=== PATIENT | male | born 1950 | race Caucasian/White ===

== ENCOUNTER 2020-06-01 08:14 | Outpatient (REF) | payer MEDICARE, BC, SELFPAY ==
[2020-06-01 11:48] LABS: Alanine Aminotransferase 25 U/L (0-40); Anion Gap 13 (12-20); Aspartate Amino Transferase 20 U/L (5-37); Blood Urea Nitrogen 20 mg/dL (9-16); Calcium 8.8 mg/dL (8.4-10.2); Carbon Dioxide 29 mmol/L (22-29); Chloride 102 mmol/L (96-108); Cholesterol 198 mg/dL; Estimated Glomerular Filt Rate > 60; Glucose Fasting 125 mg/dL (60-99); HDL Cholesterol 44 mg/dL; LDL Cholesterol Calculated 135 mg/dl; Potassium 4.6 mmol/l (3.3-5.1); Sodium 139 mmol/L (135-145); Triglycerides 95 mg/dL
[2020-06-01 12:03] LABS: PSA,Total (Free>4and<10) 0.56 ng/mL (0.00-4.00)
== END 2020-06-01 08:15 | disposition home or self-care (01) ==
LOC: HO.HMGCLDS 08:14
PROVIDERS: PCP Internal Medicine; Visit Provider Internal Medicine
DX: Z00.00 Encounter for general adult medical examination without abnormal findings (principal); I10 Essential (primary) hypertension; E78.5 Hyperlipidemia, unspecified; Z13.6 Encounter for screening for cardiovascular disorders
CPT/HCPCS: 80048; 80061; 84153; 84450; 84460

== ENCOUNTER 2020-12-10 12:02 | Outpatient (REF) | payer MEDICARE, BC, SELFPAY ==
[2020-12-10 14:03] LABS: MANUAL DIFF FLAG NO
[2020-12-10 14:08] LABS: Basophils Absolute Auto 0.1 X10*3/uL (0.0-0.2); Basophils Percent Auto 0.9 % (0-2); Eosinophils Absolute Auto 0.2 X10*3/uL (0.0-0.4); Eosinophils Percent Auto 2.3 % (0-4); Hematocrit 45.4 % (42-52); Hemoglobin 14.3 g/dl (14.0-18.0); Imm Gran Abs Auto 0.02 X10*3/uL (0.00-0.03); Imm Gran Pct Auto 0.3 % (0.0-0.4); Lymphocytes Absolute Auto 2.2 X10*3/uL (1.2-4.9); Lymphocytes Percent Auto 31.6 % (20-40); Mean Corpuscular HGB Conc 31.5 g/dl (31.0-36.0); Mean Corpuscular Hemoglobin 27.8 pg (27.0-33.0); Mean Corpuscular Volume 88.3 fL (80-98); Mean Platelet Volume 11.6 fL (9.4-12.4); Monocytes Absolute Auto 0.8 X10*3/uL (0.1-1.2); Monocytes Percent Auto 11.7 % (2-11); Neutrophils Absolute Auto 3.7 X10*3/uL (2.0-8.3); Neutrophils Percent Auto 53.2 % (45-73); Platelet Count 266 X10*3/uL (160-400); Red Blood Count 5.14 X10*6/uL (4.60-5.80); Red Cell Distribution Width 12.8 % (11.0-16.0); White Blood Count 6.9 X10*3/uL (4.8-10.8)
[2020-12-10 14:43] LABS: Alanine Aminotransferase 22 U/L (0-40); Aspartate Amino Transferase 18 U/L (5-37); Blood Urea Nitrogen 23 mg/dL (9-16); Calcium 9.6 mg/dL (8.4-10.2); Cholesterol 210 mg/dL; Estimated Glomerular Filt Rate > 60; Glucose Fasting 110 mg/dL (60-99); HDL Cholesterol 47 mg/dL; LDL Cholesterol Calculated 140 mg/dl; Triglycerides 115 mg/dL
[2020-12-10 14:55] LABS: PSA,Total (Free>4and<10) 0.48 ng/mL (0.00-4.00); Vitamin D 25-OH Total 41.1 ng/mL (>30)
[2020-12-10 15:01] LABS: Anion Gap 14 (12-20); Carbon Dioxide 26 mmol/L (22-29); Chloride 105 mmol/L (96-108); Potassium 4.8 mmol/L (3.3-5.1); Sodium 140 mmol/L (135-145)
== END 2020-12-10 12:03 | disposition home or self-care (01) ==
LOC: HO.HMGCLDS 12:02
PROVIDERS: PCP Internal Medicine; Visit Provider Internal Medicine
DX: Z12.5 Encounter for screening for malignant neoplasm of prostate (principal); I10 Essential (primary) hypertension; E78.5 Hyperlipidemia, unspecified; E66.9 Obesity, unspecified
CPT/HCPCS: 36415; 80048; 80061; 82306; 84153; 84450; 84460; 85025

== ENCOUNTER → 2022-09-04 15:09 | Outpatient (BNVA) | payer MEDICARE, BC, SELFPAY | PROVIDERS: PCP Internal Medicine; Visit Provider Psychiatry & Neurology Psychiatry | DX: F41.1 Generalized anxiety disorder (principal); F34.1 Dysthymic disorder | CPT/HCPCS: 90833; 99212 ==

== ENCOUNTER 2022-09-25 09:35 | Outpatient (REF) | payer MEDICARE, BC, SELFPAY ==
[2022-09-25 12:20] LABS: Anion Gap 15 (12-20); Blood Urea Nitrogen 21 mg/dL (9-16); Calcium 9.4 mg/dL (8.4-10.2); Carbon Dioxide 29 mmol/L (22-29); Chloride 101 mmol/L (96-108); Cholesterol 211 mg/dL; Estimated Glomerular Filt Rate 55; Glucose Fasting 129 mg/dL (60-99); HDL Cholesterol 45 mg/dL; LDL Cholesterol Calculated 131 mg/dl; PSA,Total (Free>4and<10) 0.53 ng/mL (0.00-4.00); Potassium 4.6 mmol/L (3.3-5.1); Sodium 140 mmol/L (135-145); Triglycerides 176 mg/dL; Vitamin D 25-OH Total 44.9 ng/mL (>30)
== END 2022-09-25 09:36 | disposition home or self-care (01) ==
LOC: HO.HMGCLDS 09:35
PROVIDERS: PCP Internal Medicine; Visit Provider Internal Medicine
DX: I10 Essential (primary) hypertension (principal); E78.5 Hyperlipidemia, unspecified; E66.9 Obesity, unspecified; Z12.5 Encounter for screening for malignant neoplasm of prostate
CPT/HCPCS: 36415; 80048; 80061; 82306; 84153

== ENCOUNTER 2022-10-04 12:52 | Outpatient (AMB) | payer MEDICARE, BC, SELFPAY ==
--- NOTE | 2022-10-04 12:54 | A.OFFPC_ITS ---
Vital Signs 10/04/22 13:02 Height 5 ft 10 in Weight 274 lb BMI 39.3 BP 168/76 H Blood Pressure Location Rt brachial Position Sitting Pulse 67 Pulse Source Pulse Oximeter Pulse Oximetry (%) 98 Oxygen Delivery Method Room Air Comment has not taken his losartan-HCTZ yet this am Intake Visit Reasons: followup new findings from compensation/benefits specialist Intake Note: Pt is here today to f/u on new findings from compensation/benefits specialist Allergies lisinopril Allergy (Unknown, Verified 02/26/24 10:46) cough morphine Allergy (Unknown, Verified 02/26/24 10:46) hives Medication List - Last Reconciled 10/04/22 by Michelle Mejía MD aspirin (Adult Low Dose Aspirin) 81 mg PO DAILY cholecalciferol (vitamin D3) 25 mcg PO DAILY flaxseed oil 1,000 mg PO DAILY lorazepam 0.5 mg PO DAILY PRN losartan-hydrochlorothiazide 50-12.5 mg 1 tab PO DAILY sertraline 50 mg PO DAILY Tobacco use date assessed: 10/04/22 Fall risk assessment: No Falls in past year Last assessed Fall Risk: 10/04/22 HPI followup new findings from compensation/benefits specialist HPI Details 74-year-old male here today for follow-u p after 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 He states that he was lifting heavy furniture the day prior to visit but as per exam distribution hemorrhage was not consistent with Valsalva retinopathy. Advised to get his blood pressure checked and get it controlled, and get lipids, she blood sugar levels controlled and to check for any evidence of atherosclerosis. Patient denies any chest pain, no headaches, no shortness of breath or palpitation. Systolic Blood pressure today's visit is elevated. Recent fasting labs showed hemoglobin A1c at 6.2% and LDL cholesterol at 131 mg/dL with an triglycerides at 176 mg/dL and total cholesterol at 211 mg/dL with HDL at 45. [facility] Medical History White coat syndrome with hypertension Mixed dyslipidemia Impaired fasting glucose History of retinal tear Hollenhorst plaque, both eyes Generalized anxiety disorder Panic disorder History of eczema Osteoarthritis of right knee Anxiety Obesity Essential hypertension Surgical History History of bariatric surgery History of total right knee replacement Family History Mother Congestive heart failure Social History Housing: House Alcohol intake: current Patient Tobacco Use Status: Never used Tobacco e-Cigarette/Vaping Use: Never Used Current occupational status: retired Cognitive needs: No Hearing needs: No Vision needs: No Questionnaire PHQ-9 Over the last 2 weeks, how often have you been bothered by any of the following problems? 1. Little interest or pleasure in doing things: several days 2. Feeling down, depressed, or hopeless: not at all 3. Trouble falling or staying asleep, or sleeping too much: several days 4. Feeling tired or having little energy: not at all 5. Poor appetite or overeating: not at all 6. Feeling bad about yourself - or that you are a failure or have let yourself or your family down: not at all 7. Trouble concentrating on things, such as reading the newspaper or watching television: not at all 8. Moving or speaking so slowly that other people could have noticed. Or the opposite - being so fidgety or restless that you have been moving around a lot more than usual: not at all 9. Thoughts that you would be better off or of hurting yourself in some way: not at all Total score: 2 Depression Screening Interpretation: Negative Source: Developed by Drs. Vernon Harry, Yandy Pate, Ming Borjas and colleagues, with an educational angie from [email or web address]. Thrive Questionnaire Declines Thrive assessment: No Date Thrive assessed: 10/04/22 I am a: Patient What is your living situation today?: I have a steady place to live Within the past 12 months, did the food you bought not last and you didn't have the money to get more?: Never true Within the past 12 months, did you worry whether your food would run out before you got money to buy more?: Never true Do you have trouble paying for medicines?: No Do you have trouble getting transportation to medical appointments?: No Do you have trouble paying your heating and electricity bill?: No Do you have trouble taking care of your child, family member or friend?: No Do you have trouble with day-to-day activities such as bathing, preparing meals, shopping, managing finances, etc.?: No Are you currently unemployed and looking for a job?: No Are you interested in more education?: Yes AUDIT C Alcohol Use Questionnaire (AUDIT-C) 1. How often do you have a drink containing alcohol?: Monthly or less 2. How many drinks containing alcohol do you have on a typical day when you are drinking?: 1 or 2 3. How often do you have six or more drinks on one occasion?: Never Total Score: 1 MCKAYLA-7 AMB Questionnaire MCKAYLA-7 Date MCKAYLA - 7 assessed: 10/04/22 Feeling nervous, anxious, or on edge: 1 = Several days Not being able to stop or control worryin = Several days Worrying too much about different things: 1 = Several days Trouble relaxin = Several days Being so restless that it is hard to sit still: 0 = Not at all Becoming easily annoyed or irritable: 0 = Not at all Feeling afraid as if something awful might happen: 0 = Not at all Total MCKAYLA-7 score (0-4 normal; 5-9 mild; 10-14 moderate; 15-21 severe): 4 Source: Developed by Drs. Vernon Harry, Yandy Pate, Ming Borjas and colleagues, with an educational angie from [email or web address]. MCKAYLA-7 Assessment Billing MCKAYLA-7 Assessment Tool: MCKAYLA-7 Assessment 14670 Review of Systems Const Denies body aches, Denies fatigue, Denies fever(s), Denies headache(s), Denies malaise, Denies poor appetite and Denies weakness Eyes Reports no additional complaints ENT Denies dizziness, Denies dry mouth, Denies otalgia, Denies headache(s), Denies epistaxis and Denies nasal congestion Card Denies chest pain, Denies irregular heart rhythm, Denies lightheadedness and Denies dyspnea Resp Denies cough and Denies dyspnea GI Denies abdominal pain, Denies melena, Denies hematochezia, Denies change in bowel habits, Denies heartburn and Denies nausea Denies hematuria, Denies oliguria, Denies difficulty urinating and Denies dysuria Musc Denies back pain, Denies myalgias, Denies arthralgias, Denies joint swelling, Denies muscle cramps, Denies muscle weakness and Denies tingling Skin/Breast Denies lesions and Denies rash Neuro Denies dizziness, Denies headache(s), Denies convulsions, Denies Sensory deficit (Neuro), Denies tingling, Denies paresthesias and Denies weakness Psych Reports no additional complaints Endo Denies fatigue and Denies polyphagia Ricardo/Lymph Reports no additional complaints Aller/Immun Reports no additional complaints Physical exam (Primary Care) Vital Signs: Last Vital Signs Pulse 67 10/04/22 13:02 BP 168/76 H 10/04/22 13:02 Pulse Ox 98 10/04/22 13:02 Oxygen Delivery Method Room Air 10/04/22 13:02 BMI result Body Mass Index 39.3 Tobacco/Smoking Status: Tobacco use Status Tobacco use date assessed 10/04/22 10/04/22 13:07 Patient Tobacco Use Status Never used Tobacco 10/04/22 13:07 e-Cigarette/Vaping Use Never Used 10/04/22 13:07 PHQ-9: PHQ-9 Score PHQ-9: Total score 2 10/04/22 13:48 Depression Screening Interpretation: Negative Thrive Assessment: Date of Thrive Assessment Date Thrive assessed 10/04/22 10/04/22 13:09 Const Other: Alert oriented x3, obese, no acute distress noted, ambulatory normal gait Orientation/consciousness: patient oriented x3 HENMT Head: Yes normocephalic Ears: external ears normal, TM's normal bilaterally and EAC's normal General nose exam: Normal external nose present and No nasal discharge present Face and sinus: Yes face symmetric Mouth: Normal oral and palatal mucosa present, tongue normal, oropharynx normal and moist mucous membranes Eyes General: appearance normal, both eyes and all related structures Neck Neck: Yes full ROM, Yes no lymphadenopathy and Yes supple Thyroid: Thyroid normal Carotids: no bruits Resp Auscultation: clear to auscultation bilaterally Cardio Other: S1-S2 present regular rate and rhythm GI Inspection: Yes normal to inspection and Yes obesity Palpation (GI): Soft to palpation, nontender, no guarding and no masses Auscultation: normal bowel sounds General: Yes no CVA tenderness Male General Exam: Yes normal external exam Back/Spine/Pelvis Back: no CVA tenderness Skin General skin exam: no rashes or lesions noted Neuro General: patient oriented x3, gait normal, tone normal, moves all extremities, Normal light touch and pain sensation, no focal motor deficits and CN's II-XI intact bilaterally Sensory Exam: No Sensory deficit (Neuro) Extrem General: Yes full ROM, Yes no joint enlargement, Yes no clubbing, cyanosis or edema and Yes normal gait Psych Appearance: grossly normal and well kempt Mental Status: mental status grossly normal Speech and movement: Normal speech and movement present Affect: normal affect Attitude: cooperative Thought process: Normal thought process present Thought content: Normal thought content present Results AMB Hemoglobin A1c AMB Hemoglobin A1c 6.2 % Last Edit by Deidre Rivas CMA on 10/04/22 13:30 Results Reviewed Results Reviewed: Laboratory Last Values Hgb A1c (Clinic) 6.2 % (4.0-6.0) H 10/04/22 13:26 ENTERED: 09/25/22-[address]: ORDERED: Met Prof Fast, Lipid Panel, PSA W/ REFLEX, Vitamin D 25-OH Test Result Flag Reference Site Sodium 140 135-145 mmol/L Potassium 4.6 3.3-5.1 mmol/L CL 101 96-108 mmol/L CO2 29 22-29 mmol/L Gap 15 12-20 BUN 21 H 9-16 mg/dL Creat 1.28 0.5-1.4 mg/dL EGFR 55 NOTE: For -Citizen Of [place] individuals, multiply the result by 1.210. Chronic Kidney Disease: Estimated GFR < 60 mL/min/1.73m2 Severe Kidney Disease: Estimated GFR < 15 m L/min/1.73m2 FBS 129 H 60-99 mg/dL A fasting glucose of 126 mg/dl or greater on more than one occasion is considered diagnostic of diabetes. CA 9.4 8.4-10.2 mg/dL Triglyceride 176 mg/dL Desirable Triglyceride: less than 150 mg/dL Borderline High Triglyceride 150-199 mg/dL High Triglyceride: 200-499 mg/dL Very High Triglyceride: greater than or equal to 5OO mg/dL Chol 211 mg/dL Desirable Cholesterol: less than 200 mg/dL Borderline High Cholesterol: 200-239 mg/dL High Cholesterol: greater than 239 mg/dL LDL Calculated 131 mg/dl Desirable LDL: less than 100 mg/dL Near Optimal/Above Optimal LDL: 110-129 mg/dL Borderline High LDL: 130-159 mg/dL High LDL: 160-189 mg/dL Very High LDL: greater than or equal to 190 mg/dL HDL 45 mg/dL Desirable HDL: greater than 40 mg/dL Note: This HDL assay may give artificially low results in patients with liver disease. PSA W/ REFLEX 0.53 0.00-4.00 ng/mL A Free PSA was not performed: The percentage of Free PSA can be used to enhance the differentiation of prostate cancer from benign prostatic disease in subjects whose PSA levels are between 4.0 and 10.0 ng/mL. For subjects whose PSA levels are below 4.0 or above 10.0 ng/mL, the risk of prostate cancer is determined on the basis of the PSA alone. Therefore the % Free PSA is recommended only for those subjects whose PSA levels are between 4.0 and 10.0 ng/mL. PSA methodology: [employer] Interviewer Chemiluminescent Microparticle Immunoassay Vit D 25-OH Tot 44.9 >30 ng/mL Health Based Reference Values* < 20 ng/mL Deficient 20-30 ng/mL Insufficient > 30 ng/mL Sufficient Assessment and Plan Assessment & Plan (1) History of retinal tear: Code(s): Z86.69 - Personal history of other diseases of the nervous system and sense organs Plan: l. Strict control of blood pressure, blood glucose level and cholesterol levels again emphasized. Ordered a carotid ultrasound bilateral (2) Hollenhorst plaque, both eyes: Code(s): H34.213 - Partial retinal artery occlusion, bilateral Plan: Strict control of blood pressure, blood glucose level and cholesterol levels again emphasized. Ordered a carotid ultrasound bilateral (3) Mixed dyslipidemia: Code(s): E78.2 - Mixed hyperlipidemia Plan: Reviewed recent fasting lipid profile with patient with elevated triglycerides and LDL cholesterol. . Continue flaxseed oil, and strict adherence to a low- cholesterol diet and regular exercise, at least 30 minutes 3 to 4 times a week. Advised patient to make healthy food choices, eat more fruits, vegetables, whole grains, wild caught fish and low-fat dairy. Limit amount of meat and fried or fatty food products, as well as processed foods and fast foods. . (4) Impaired fasting glucose: Code(s): R73.01 - Impaired fasting glucose Plan: Hemoglobin A1c today is at 6.2%, Your previous fasting blood sugars were elevated above 100 mg/dL. Impaired glucose metabolism increases the risk for developing diabetes mellitus type 2, as well as heart attack and stroke later on. Lifestyle changes that promotes weight loss, healthy eating habits, and regular exercise are important, and can prevent the progression to diabetes Orders: Orders AMB Hemoglobin A1c 10/04/22 R73.01 - Impaired fasting glucose AMB EKG-In Office 10/04/22 H34.213 - Partial retinal artery occlusion, bilateral AMB Hemoglobin A1c 10/04/22 Z13.9 - Encounter for screening, unspecified US carotid duplex BI 10/04/22 H34.213 - Partial retinal artery occlusion, bilateral, Z86.69 - Personal history of other diseases of the nervous system and sense organs, R73.01 - Impaired fasting glucose, E78.2 - Mixed hyperlipidemia Coding Level of Care Code Est Pt Level 4 (81890) Complex EM visit Add On G2211 Diagnoses History of retinal tear Z86.69 Hollenhorst plaque, both eyes H34.213 Mixed dyslipidemia E78.2 Impaired fasting glucose R73.01 Additional Codes MCKAYLA-7 Assessment Billing - MCKAYLA-7 Assessment Tool: MCKAYLA-7 Assessment 51772 ([id number])
[2022-10-04 13:02] VITALS: BP 168/76; PULSE 67; O2SAT 98; BMI 39.3
== END 2022-10-04 14:36 | disposition home or self-care (01) ==
LOC: HO.HMGC 12:52
PROVIDERS: PCP Internal Medicine; Visit Provider Internal Medicine
DX: Z86.69 Personal history of other diseases of the nervous system and sense organs (principal); H34.213 Partial retinal artery occlusion, bilateral; E78.2 Mixed hyperlipidemia; R73.01 Impaired fasting glucose
CPT/HCPCS: 99499

== ENCOUNTER 2022-10-25 09:42 | Outpatient (REF) | payer MEDICARE, BC, SELFPAY ==
--- NOTE | ~2022-10-25 | US_ITS ---
EXAMINATION: US EXTRACRANIAL CAROTID DUPLEX, BILATERAL CLINICAL INFORMATION: Retinal artery occlusion. COMPARISON: None. TECHNIQUE: Real-time ultrasound and Doppler techniques (integrating B-mode 2-D vascular images, Doppler spectral analysis and color-flow Doppler imaging) were utilized to interrogate the extracranial carotid arteries, the vertebral arteries and proximal subclavian arteries bilaterally. The degree of stenosis is determined by criteria similar to NASCET. FINDINGS: RIGHT SIDE: 1. There is mild atherosclerotic plaque seen in the bifurcation/proximal ICA region. 2. The common carotid artery PSV proximally is 120 cm/s and distally 72 cm/s. 3. The proximal internal carotid artery velocities are 73 cm/s systolic and 15 cm/s diastolic. 4. The proximal external carotid artery PSV is 183 cm/s. 5. The vertebral artery shows antegrade flow. 6. The subclavian artery waveforms are normal. LEFT SIDE: 1. There is mild atherosclerotic plaque seen in the bifurcation/proximal ICA region. 2. The common carotid artery PSV proximally is 104 cm/s and distally 84 cm/s. 3. The proximal internal carotid artery velocities are 67 cm/s systolic and 12 cm/s diastolic. 4. The proximal external carotid artery PSV is 99 cm/s. 5. The vertebral artery shows antegrade flow. 6. The subclavian artery waveforms are normal. US/US carotid duplex BI IMPRESSION: 1. RIGHT: Minimal, non-hemodynamically significant stenosis of the proximal right internal carotid artery corresponding to a 0-49% stenosis by velocity criteria. 2. LEFT: Minimal, non-hemodynamically significant stenosis of the proximal left internal carotid artery corresponding to a 0-49% stenosis by velocity criteria.
== END 2022-10-25 09:43 | disposition home or self-care (01) ==
LOC: HO.HMGCX 09:42
PROVIDERS: PCP Internal Medicine; Visit Provider Internal Medicine
DX: H34.213 Partial retinal artery occlusion, bilateral (principal); E78.2 Mixed hyperlipidemia; R73.01 Impaired fasting glucose; Z86.69 Personal history of other diseases of the nervous system and sense organs
CPT/HCPCS: 93880

== ENCOUNTER → 2022-12-26 12:53 | Outpatient (BNVA) | payer MEDICARE, BC, SELFPAY | PROVIDERS: PCP Internal Medicine; Visit Provider Psychiatry & Neurology Psychiatry | DX: F32.A Depression, unspecified (principal); F41.0 Panic disorder [episodic paroxysmal anxiety]; Z79.899 Other long term (current) drug therapy | CPT/HCPCS: 90833; 99212 ==

== ENCOUNTER 2023-03-23 11:05 | Outpatient (REF) | payer MEDICARE, BC, SELFPAY ==
[2023-03-23 14:03] LABS: Estimated Average Glucose 131 mg/dL; Hemoglobin A1c % 6.2 %
[2023-03-23 15:09] LABS: Alanine Aminotransferase 24 U/L (0-40); Anion Gap 16 (12-20); Aspartate Amino Transferase 19 U/L (5-37); Blood Urea Nitrogen 23 mg/dL (9-16); Calcium 9.7 mg/dL (8.4-10.2); Carbon Dioxide 26 mmol/L (22-29); Chloride 103 mmol/L (96-108); Cholesterol 181 mg/dL; Estimated Glomerular Filt Rate > 60; Glucose Fasting 136 mg/dL (60-99); HDL Cholesterol 40 mg/dL; LDL Cholesterol Calculated 115 mg/dl; Potassium 4.8 mmol/L (3.3-5.1); Sodium 140 mmol/L (135-145); Triglycerides 131 mg/dL
[2023-03-23 15:11] LABS: Vitamin D 25-OH Total 74.9 ng/mL (>30)
== END 2023-03-23 11:06 | disposition home or self-care (01) ==
LOC: HO.HMGCLDS 11:05
PROVIDERS: PCP Internal Medicine; Visit Provider Internal Medicine
DX: E66.9 Obesity, unspecified (principal); E78.2 Mixed hyperlipidemia; I10 Essential (primary) hypertension; R73.01 Impaired fasting glucose; Z86.39 Personal history of other endocrine, nutritional and metabolic disease
CPT/HCPCS: 36415; 80048; 80061; 82306; 83036; 84450; 84460

== ENCOUNTER 2023-03-29 09:12 | Outpatient (AMB) | payer MEDICARE, BC, SELFPAY ==
--- NOTE | 2023-03-29 09:19 | A.OFFPC_ITS ---
Vital Signs 03/29/23 09:29 Height 5 ft 10 in Weight 274 lb BMI 39.3 BP 158/80 H Blood Pressure Location Lt brachial Position Sitting Pulse 64 Pulse Source Pulse Oximeter Pulse Oximetry (%) 94 Oxygen Delivery Method Room Air Intake Visit Reasons: Annual PE Intake Note: Pt is here today for his PE Allergies lisinopril Allergy (Unknown, Verified 03/29/23 10:02) cough morphine Allergy (Unknown, Verified 03/29/23 10:02) hives Medication List - Last Reconciled 03/29/23 by Michelle Mejía MD aspirin (Adult Low Dose Aspirin) 81 mg PO DAILY cholecalciferol (vitamin D3) 25 mcg PO DAILY flaxseed oil 1,000 mg PO DAILY lorazepam 0.5 mg PO DAILY PRN losartan-hydrochlorothiazide 50-12.5 mg 1 tab PO DAILY sertraline 50 mg PO DAILY Tobacco use date assessed: 03/29/23 Fall risk assessment: No Falls in past year Last assessed Fall Risk: 03/29/23 Dental Screening Dental Screen Date: 03/29/23 Did you have a dental visit in the last 12 months?: Yes Did you have a dental problem in the last 6 months where you did not have access to dental care?: Yes Was dental information given to patient?: Patient has dentist HPI Annual PE HPI Details 73-year-old male with history of white coat syndrome with hypertension, mixed dyslipidemia, history impaired fasting glucose, generalized anxiety disorder, osteoarthritis of right knee and obesity, here today for his physical exam. Has been checking his blood pressure at home and his levels do not go above 130/80 when checked denies any chest pain, no headache, no lightheadedness or nausea. Compliant with taking his medications, currently on losartan- hydrochlorothiazide for blood pressure and takes sertraline 50 mg daily for his generalized anxiety disorder, rarely needing to be take his lorazepam. He had recent fasting labs done which showed normal electrolytes, renal function, A1c at 6.2%, and lipids within normal limits as well as vitamin-D level. [facility] Medical History (Updated 03/29/23 @ 10:23 by Michelle Mejía MD) Anxiety Essential hypertension Generalized anxiety disorder History of eczema History of retinal tear Hollenhorst plaque, both eyes Impaired fasting glucose Mixed dyslipidemia Obesity Osteoarthritis of right knee Panic disorder White coat syndrome with hypertension Surgical History History of bariatric surgery History of total right knee replacement Family History Mother Congestive heart failure Social History Housing: House Alcohol intake: current Patient Tobacco Use Status: Never used Tobacco e-Cigarette/Vaping Use: Never Used Current occupational status: retired Cognitive needs: No Hearing needs: No Vision needs: No Questionnaire Thrive Questionnaire Date Thrive assessed: 10/04/22 MCKAYLA-7 AMB Questionnaire MCKAYLA-7 Date MCKAYLA - 7 assessed: 10/04/22 Source: Developed by Drs. Vernon Harry, Yandy Pate, Ming Borjas and colleagues, with an educational angie from [employer]. Review of Systems Const Denies body aches, Denies fatigue, Denies fever(s), Denies headache(s), Denies malaise, Denies poor appetite and Denies weakness Eyes Reports no additional complaints ENT Denies dizziness, Denies dry mouth, Denies otalgia, Denies headache(s), Denies epistaxis and Denies nasal congestion Card Denies chest pain, Denies irregular heart rhythm, Denies lightheadedness and Denies dyspnea Resp Denies cough and Denies dyspnea GI Denies abdominal pain, Denies melena, Denies hematochezia, Denies change in bowel habits, Denies heartburn and Denies nausea Denies hematuria, Denies oliguria, Denies difficulty urinating and Denies dysuria Musc Denies back pain, Denies myalgias, Denies arthralgias, Denies joint swelling, Denies muscle cramps, Denies muscle weakness and Denies tingling Skin/Breast Denies lesions and Denies rash Neuro Denies dizziness, Denies headache(s), Denies convulsions, Denies Sensory deficit (Neuro), Denies tingling, Denies paresthesias and Denies weakness Psych Reports no additional complaints Endo Denies fatigue and Denies polyphagia Ricardo/Lymph Reports no additional complaints Aller/Immun Reports no additional complaints Physical exam (Primary Care) Vital Signs: Last Vital Signs Pulse 64 03/29/23 09:29 BP 158/80 H 03/29/23 09:29 Pulse Ox 94 03/29/23 09:29 Oxygen Delivery Method Room Air 03/29/23 09:29 BMI result Body Mass Index 39.3 BMI Assessment/Plan discussion: High BMI High, discussed plan: lifestyle, weight reduction, dietary and physical activity Tobacco/Smoking Status: Tobacco use Status Tobacco use date assessed 03/29/23 03/29/23 09:20 Patient Tobacco Use Status Never used Tobacco 03/29/23 09:20 e-Cigarette/Vaping Use Never Used 03/29/23 09:20 Thrive Assessment: Date of Thrive Assessment Date Thrive assessed 10/04/22 03/29/23 09:20 Advance Care Planning discussion: On file, no changes Date of discussion: 03/29/23 Who was present: Patient Forms completed: Health Care Proxy (Already on file) Time spent: 1-15 minutes, on File Const Other: Alert oriented x3, obese, no acute distress noted, ambulatory normal gait Orientation/consciousness: patient oriented x3 HENMT Head: Yes normocephalic Ears: external ears normal, TM's normal bilaterally and EAC's normal General nose exam: Normal external nose present and No nasal discharge present Face and sinus: Yes face symmetric Mouth: Normal oral and palatal mucosa present, tongue normal, oropharynx normal and moist mucous membranes Eyes General: appearance normal, both eyes and all related structures Neck Neck: Yes full ROM, Yes no lymphadenopathy and Yes supple Thyroid: Thyroid normal Carotids: no bruits Lymphatic: no lymphadenopathy noted Chest Chest palpation & inspection: normal inspection of the chest Resp Auscultation: clear to auscultation bilaterally Cardio Other: S1-S2 present regular rate and rhythm GI Inspection: Yes normal to inspection and Yes obesity Palpation (GI): Soft to palpation, nontender, no guarding and no masses Auscultation: normal bowel sounds General: Yes no CVA tenderness Male General Exam: Yes normal external exam Back/Spine/Pelvis Back: no CVA tenderness Skin General skin exam: no rashes or lesions noted Neuro General: patient oriented x3, gait normal, tone normal, moves all extremities, Normal light touch and pain sensation, no focal motor deficits and CN's II-XI intact bilaterally Sensory Exam: No Sensory deficit (Neuro) Extrem General: Yes full ROM, Yes no joint enlargement, Yes no clubbing, cyanosis or edema and Yes normal gait Psych Appearance: grossly normal and well kempt Mental Status: mental status grossly normal Speech and movement: Normal speech and movement present Affect: normal affect Attitude: cooperative Thought process: Normal thought process present Thought content: Normal thought content present Results Reviewed Results Reviewed: RUN: 03/29/23 0956 PAGE 1 [facility] [address] [place] [id number] [employer]ane: Lloyd Aburto M.D. Specimen Inquiry Name: Arley Mendoza Age/Sex: 73/M : 1950 Unit#: [id number] Attend Dr: Michelle Mejía MD Re03/23/23 Status: DEP [facility]F [facility] Disch: SPEC : [id number] VIPIN: 03/23/23 STATUS: COMP REQ : [id number] RECD: 03/23/[address]: Michelle Mejía MD COMP: 03/23/23 ENTERED: 03/23/23-[address]: ORDERED: Met Prof Fast, AST, ALT, Lipid Panel, Vitamin D 25-OH Test Result Flag Reference Site Sodium 140 135-145 mmol/L Potassium 4.8 3.3-5.1 mmol/L CL 103 96-108 mmol/L CO2 26 22-29 mmol/L Gap 16 12-20 BUN 23 H 9-16 mg/dL Creat 1.12 0.5-1.4 mg/dL EGFR > 60 NOTE: For -[place] individuals, multiply the result by 1.210. Chronic Kidney Disease: Estimated GFR < 60 mL/min/1.73m2 Severe Kidney Disease: Estimated GFR < 15 mL/min/1.73m2 FBS 136 H 60-99 mg/dL A fasting glucose of 126 mg/dl or greater on more than one occasion is considered diagnostic of diabetes. CA 9.7 8.4-10.2 mg/dL AST (GOT) 19 5-37 U/L ALT (GPT) 24 0-40 U/L Triglyceride 131 mg/dL Desirable Triglyceride: less than 150 mg/dL Borderline High Triglyceride 150-199 mg/dL High Triglyceride: 200-499 mg/dL Very High Triglyceride: greater than or equal to 5OO mg/dL Chol 181 mg/dL Desirable Cholesterol: less than 200 mg/dL Borderline High Cholesterol: 200-239 mg/dL High Cholesterol: greater than 239 mg/dL LDL Calculated 115 mg/dl Desirable LDL: less than 100 mg/dL Near Optimal/Above Optimal LDL: 110-129 mg/dL Borderline High LDL: 130-159 mg/dL High LDL: 160-189 mg/dL Very High LDL: greater than or equal to 190 mg/dL HDL 40 mg/dL Desirable HDL: greater than 40 mg/dL Note: This HDL assay may give artificially low results in patients with liver disease. Vit D 25-OH Tot 74.9 >30 ng/mL Health Based Reference Values* < 20 ng/mL Deficient 20-30 ng/mL Insufficient > 30 ng/mL Sufficient Laboratory Tests 03/23/23 11:12 Estimat Average Glucose 131 Hemoglobin A1c % 6.2 Assessment and Plan Assessment & Plan (1) Annual visit for general adult medical examination with abnormal findings: Code(s): Z00.01 - Encounter for general adult medical examination with abnormal findings Plan: Reviewed recent fasting labs with patient. Recommended dental visit every 6 months and regular eye exams, at least every 2 years. Take adequate calcium in diet and vitamin-D 3 at 2000 IU per cap once a day, in addition to weight- bearing exercises to help maintain good muscle tone and weight control. Instructed to do self-testicular exam to check for mass. Reminded to get his COVID booster, as well as yearly flu vaccine, due for his Prevnar 20, level right now the clinic, he can get is at the pharmacy. He is also eligible to get shingles vaccine, and is available at pharmacies well. Up-to-date with his screening colonoscopy done by Dr. Ricketts in 2016, repeat due in 2026 (2) Mixed dyslipidemia: Code(s): E78.2 - Mixed hyperlipidemia Plan: Reviewed recent fasting lipid profile with patient with levels within normal limits . Continue with taking flaxseed oil, , in addition to adherence to low-cholesterol diet and regular exercise, at least 30 minutes 3 to 4 times a week. Advised patient to make healthy food choices, eat more fruits, vegetables, whole grains, wild caught fish and low-fat dairy. Limit amount of meat and fried or fatty food products, as well as processed foods and fast foods. Follow-up scheduled with repeat fasting lipid panel in 6 months. (3) Impaired fasting glucose: Code(s): R73.01 - Impaired fasting glucose Plan: Your fasting blood sugars elevated above 100 mg/dL. With a hemoglobin A1c at 6.2%. Impaired glucose metabolism O2 at risk for developing diabetes mellitus type 2, as well as heart attack and stroke later on. Lifestyle changes at just weight loss, healthy eating habits, and regular exercise are important, and can prevent the progression to diabetes (4) Generalized anxiety disorder: Code(s): F41.1 - Generalized anxiety disorder Plan: Continued on sertraline 50 mg once a day, and has lorazepam to take as needed for acute anxiety attacks (5) Obesity: Code(s): E66.9 - Obesity, unspecified Plan: Your BMI is above the ideal range. I deal BMI is between 18.5- 24. BMI is calculated from you height and weight. Weight gain happens when you taken more calories than you burn off. Discussed need to increase activity and weight reduction. Recommended focusing on improving health instead of dieting. Mediterranean diet is a healthy diet that helps, limit food high in fat, sugar, and calories. Eat slowly, pay attention to portion sizes, plan your meals ahead of time, start regular physical activity, at least 150 minutes of moderate intensity exercise, or 90 minutes per week of vigorous exercise. Keeping a food diary, tracking what you eat and your physical activity can help assess what improvements you can make. There are many health problems associated with being overweight/obese, so it is important to improve your diet and exercise. There are medications and surgical options available, but Lifestyle changes are the 1st step. (6) Essential hypertension: Code(s): I10 - Essential (primary) hypertension Plan: Blood pressure goal is less than 130/80. Continue with current medication. Reinforced importance of following a low sodium diet, getting regular exercise, and lowering stress levels. Orders: Orders Alanine Aminotransferase 6 Months E66.9 - Obesity, unspecified, E78.2 - Mixed hyperlipidemia, I10 - Essential (primary) hypertension, R73.01 - Impaired fasting glucose Aspartate Amino Transferase 6 Months E66.9 - Obesity, unspecified, E78.2 - Mixed hyperlipidemia, I10 - Essential (primary) hypertension, R73.01 - Impaired fasting glucose Basic Metabolic Panel Fasting 6 Months E66.9 - Obesity, unspecified, E78.2 - Mixed hyperlipidemia, I10 - Essential (primary) hypertension, R73.01 - Impaired fasting glucose Hemoglobin A1c 6 Months E66.9 - Obesity, unspecified, E78.2 - Mixed hyperlipidemia, I10 - Essential (primary) hypertension, R73.01 - Impaired fasting glucose Lipid Panel 6 Months E66.9 - Obesity, unspecified, E78.2 - Mixed hyperlipidemia, I10 - Essential (primary) hypertension, R73.01 - Impaired fasting glucose Coding Level of Care Code Est Pt Prev Care >65y(92034) Diagnoses Annual visit for general adult medical examination with abnormal findings Z00.01 Mixed dyslipidemia E78.2 Impaired fasting glucose R73.01 Generalized anxiety disorder F41.1 Obesity E66.9 Essential hypertension I10 Additional Codes Vital Signs *Quality* - Advance Care Planning discussion: On file, no changes ([id number]) Vital Signs *Quality* - Time spent: 1-15 minutes, on File ([id number])
[2023-03-29 09:29] VITALS: BP 158/80; PULSE 64; O2SAT 94; BMI 39.3
== END 2023-03-29 10:25 | disposition home or self-care (01) ==
PROVIDERS: PCP Internal Medicine; Visit Provider Internal Medicine
DX: Z00.00 Encounter for general adult medical examination without abnormal findings (principal); I10 Essential (primary) hypertension; E78.2 Mixed hyperlipidemia; R73.01 Impaired fasting glucose; F41.1 Generalized anxiety disorder; E66.9 Obesity, unspecified
CPT/HCPCS: 1123F; 99397

== ENCOUNTER 2023-09-05 11:03 | Outpatient (AMB) | payer MEDICARE, BC, SELFPAY ==
--- NOTE | 2023-09-05 11:25 | MHC.OFFVISPS ---
Intake Intake Visit Reasons: depression Allergies lisinopril Allergy (Unknown, Verified 03/29/23 10:02) cough morphine Allergy (Unknown, Verified 03/29/23 10:02) hives Medication List - Last Reconciled 09/05/23 by Chad Silva MD aspirin (Adult Low Dose Aspirin) 81 mg PO DAILY cholecalciferol (vitamin D3) 25 mcg PO DAILY flaxseed oil 1,000 mg PO DAILY lorazepam 0.5 mg PO DAILY PRN losartan-hydrochlorothiazide 50-12.5 mg 1 tab PO DAILY sertraline 50 mg PO DAILY sertraline 50 mg PO DAILY HPI- Psychiatric Chief Complaint: depression HPI Narrative: Pt generally stable medically no change mood stable difficulty with anxiety boundary at times generally stable on sertraline . Feels like disabled son is doing better. Does feel at times he has no time from self and can be overwhelming difficulty with setting boundaries with family and others. Enjoys time working alone for relaxation has a number of hobbies including [employer] no new medical concerns Past Psychiatric History: hx depression panic Mental Status Exam Mental Status Exam Narrative: Mental Status Exam Narrative: Appearance: Casually dressed Behavior: Cooperative appropriate psychomotor: Within normal limits Speech: Normal volume and prosody Thought proccess logical and goal-directed Thought content: Future oriented no self-harming thoughts significant for issues related to interpersonal relationships and boundaries Mood: Euthymic Affect: Appropriate to mood full affect SI:denies HI:denies VH/AH:none Delusions: None Insight/judgment: Good insight and judgment Memory/cog: Intact Assessment and Plan Assessment & Plan (1) Generalized anxiety disorder: Status: Acute Code(s): F41.1 - Generalized anxiety disorder Plan Continue same sertraline occasional lorazepam rare panic. Issues related to balancing needs and boundaries some degree of chronic stress with disabled son living at home intermittent visitation with grandchildren who live in [place] Medications: Refilled sertraline 50 mg PO DAILY 90 tabs 1RF lorazepam 0.5 mg PO DAILY PRN 30 tabs 0RF anxiety Counseling and coordination of Care Details-Self Mgmt counseling: Issues related to managing self-care while dealing with family stressors Diagnosis and Prognosis Counseling: Impact of family relationship and Adequacy of current interventions Details: I spent [37] minutes reviewing the record, seeing the patient and documenting in the medical record. Counseling provided to the patient/caregiver as outlined below. Addressed patient/caregiver concerns regarding current medication regime including effective adherence. Addressed patient/caregiver concerns regarding diagnosis and prognosis including accuracy of diagnosis, prognosis over time, impact of diagnosis. Addressed patient/caregiver concerns regarding impact of recent stressors. [facility] Medical History (Updated 03/29/23 @ 10:23 by Michelle Mejía MD) White coat syndrome with hypertension Mixed dyslipidemia Impaired fasting glucose History of retinal tear Hollenhorst plaque, both eyes Generalized anxiety disorder Panic disorder History of eczema Osteoarthritis of right knee Anxiety Obesity Essential hypertension Surgical History History of bariatric surgery History of total right knee replacement Family History Mother Congestive heart failure Social History Housing: House Alcohol intake: current Patient Tobacco Use Status: Never used Tobacco e-Cigarette/Vaping Use: Never Used Current occupational status: retired Cognitive needs: No Hearing needs: No Vision needs: No Social History: 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
== END 2023-09-05 12:09 | disposition home or self-care (01) ==
LOC: HO.HOP 11:03
PROVIDERS: PCP Internal Medicine; Visit Provider Psychiatry & Neurology Psychiatry
DX: F41.1 Generalized anxiety disorder (principal)
CPT/HCPCS: 90833; 99213

== ENCOUNTER → 2023-09-05 11:03 | Outpatient (BNVA) | payer MEDICARE, BC, SELFPAY | PROVIDERS: PCP Internal Medicine; Visit Provider Psychiatry & Neurology Psychiatry | DX: F41.1 Generalized anxiety disorder (principal); Z79.899 Other long term (current) drug therapy | CPT/HCPCS: 99212 ==

== ENCOUNTER 2024-02-26 10:22 | Outpatient (AMB) | payer MEDICARE, BC, SELFPAY ==
--- NOTE | 2024-02-26 10:34 | A.OFFPC_ITS ---
Vital Signs 02/26/24 10:35 Height 5 ft 10 in Weight 277 lb BMI 39.7 BP 166/70 H Blood Pressure Location Lt brachial Position Sitting Pulse 78 Pulse Source Pulse Oximeter Pulse Oximetry (%) 96 Oxygen Delivery Method Room Air Intake Visit Reasons: discuss wgt medication Intake Note: Pt is here today to discuss wgt medication Allergies lisinopril Allergy (Unknown, Verified 02/26/24 10:46) cough morphine Allergy (Unknown, Verified 02/26/24 10:46) hives Medication List - Last Reconciled 02/26/24 by Michelle Mejía MD aspirin (Adult Low Dose Aspirin) 81 mg PO DAILY cholecalciferol (vitamin D3) 25 mcg PO DAILY flaxseed oil 1,000 mg PO DAILY lorazepam 0.5 mg PO DAILY PRN losartan-hydrochlorothiazide 50-12.5 mg 1 tab PO DAILY sertraline 50 mg PO DAILY Tobacco use date assessed: 02/26/24 Fall risk assessment: No Falls in past year Last assessed Fall Risk: 02/26/24 Dental Screening Dental Screen Date: 02/26/24 Did you have a dental visit in the last 12 months?: Yes Did you have a dental problem in the last 6 months where you did not have access to dental care?: No Was dental information given to patient?: Patient has dentist HPI discuss wgt medication HPI Details 74-year-old male with hypertension, curr ently on losartan-HCTZ 50 mg- 12.5 taken once a day, here today for follow-up on his hypertension. Blood pressure elevated today. Patient states that he has been having a lot of stress lately but has been compliant with taking his medication. Denies any accompanying chest pain, no lightheadedness, no headache or chest pressure, no palpitations or shortness of breath reported. He also has been having trouble losing weight. Already tried several diets including Atkins, Mediterranean diet, and has been going to the gym , exercising regularly. He has tried weight watchers, which he states initially helped but stopped work. Would like to see if he can try Wegovy to help him with weight loss. [facility] Medical History White coat syndrome with hypertension Mixed dyslipidemia Impaired fasting glucose History of retinal tear Hollenhorst plaque, both eyes Generalized anxiety disorder Panic disorder History of eczema Osteoarthritis of right knee Anxiety Obesity Essential hypertension Surgical History History of bariatric surgery History of total right knee replacement Family History Mother Congestive heart failure Social History Housing: House Alcohol intake: current Patient Tobacco Use Status: Never used Tobacco e-Cigarette/Vaping Use: Never Used Current occupational status: retired Cognitive needs: No Hearing needs: No Vision needs: No Questionnaire PHQ-9 Over the last 2 weeks, how often have you been bothered by any of the following problems? 1. Little interest or pleasure in doing things: not at all 2. Feeling down, depressed, or hopeless: not at all 3. Trouble falling or staying asleep, or sleeping too much: not at all 4. Feeling tired or having little energy: not at all 5. Poor appetite or overeating: not at all 6. Feeling bad about yourself - or that you are a failure or have let yourself or your family down: not at all 7. Trouble concentrating on things, such as reading the newspaper or watching television: not at all 8. Moving or speaking so slowly that other people could have noticed. Or the opposite - being so fidgety or restless that you have been moving around a lot more than usual: not at all 9. Thoughts that you would be better off or of hurting yourself in some way: not at all Total score: 0 Depression Screening Interpretation: Negative Depression Screening Done: Yes 32910 - PHQ-9 Billing: Yes Source: Developed by Drs. Vernon Harry, Yandy Pate, Ming Borjas and colleagues, with an educational angie from [employer]. Thrive Questionnaire Date Thrive assessed: 02/26/24 I am a: Patient What is your living situation today?: I have a steady place to live Within the past 12 months, did the food you bought not last and you didn't have the money to get more?: Never true Within the past 12 months, did you worry whether your food would run out before you got money to buy more?: Never true Do you have trouble paying for medicines?: No Do you have trouble getting transportation to medical appointments?: No Do you have trouble paying your heating and electricity bill?: No Do you have trouble taking care of your child, family member or friend?: No Do you have trouble with day-to-day activities such as bathing, preparing meals, shopping, managing finances, etc.?: No Are you currently unemployed and looking for a job?: No Are you interested in more education?: No THRIVE Score: 0 AUDIT C Alcohol Use Questionnaire (AUDIT-C) 1. How often do you have a drink containing alcohol?: Monthly or less 2. How many drinks containing alcohol do you have on a typical day when you are drinking?: 1 or 2 Total Score: 1 MCKAYLA-7 AMB Questionnaire MCKAYLA-7 Date MCKAYLA - 7 assessed: 02/26/24 Feeling nervous, anxious, or on edge: 0 = Not at all Not being able to stop or control worryin = Not at all Worrying too much about different things: 0 = Not at all Trouble relaxin = Not at all Being so restless that it is hard to sit still: 0 = Not at all Becoming easily annoyed or irritable: 0 = Not at all Feeling afraid as if something awful might happen: 0 = Not at all Total MCKAYLA-7 score (0-4 normal; 5-9 mild; 10-14 moderate; 15-21 severe): 0 Source: Developed by Drs. Vernon Harry, Yandy Pate, Ming Borjas and colleagues, with an educational angie from [employer]. MCKAYLA-7 Assessment Billing MCKAYLA-7 Assessment Tool: MCKAYLA-7 Assessment 34833 Review of Systems Const Denies body aches, Denies fatigue, Denies fever(s), Denies headache(s), Denies malaise, Denies poor appetite and Denies weakness Eyes Reports no additional complaints ENT Denies dizziness, Denies headache(s) and Denies nasal congestion Card Denies chest pain, Denies irregular heart rhythm, Denies lightheadedness and Denies dyspnea Resp Denies cough and Denies dyspnea GI Denies abdominal pain, Denies melena, Denies hematochezia, Denies change in bowel habits, Denies heartburn and Denies nausea Denies hematuria, Denies oliguria, Denies difficulty urinating and Denies dysuria Musc Denies back pain, Denies myalgias, Denies arthralgias, Denies joint swelling, Denies muscle cramps, Denies muscle weakness and Denies tingling Skin/Breast Denies lesions and Denies rash Neuro Denies dizziness, Denies headache(s), Denies convulsions, Denies Sensory deficit (Neuro), Denies tingling, Denies paresthesias and Denies weakness Psych Reports no additional complaints Endo Denies fatigue and Denies polyphagia Ricardo/Lymph Reports no additional complaints Aller/Immun Reports no additional complaints Physical exam (Primary Care) Vital Signs: Last Vital Signs Pulse 78 02/26/24 10:35 BP 166/70 H 02/26/24 10:35 Pulse Ox 96 02/26/24 10:35 Oxygen Delivery Method Room Air 02/26/24 10:35 BMI result Body Mass Index 39.7 Tobacco/Smoking Status: Tobacco use Status Tobacco use date assessed 02/26/24 02/26/24 10:41 Patient Tobacco Use Status Never used Tobacco 02/26/24 10:41 e-Cigarette/Vaping Use Never Used 02/26/24 10:41 PHQ-9: PHQ-9 Score PHQ-9: Total score 0 02/26/24 11:08 Depression Screening Interpretation: Negative Thrive Assessment: Date of Thrive Assessment Date Thrive assessed 02/26/24 02/26/24 10:41 Const Other: Alert oriented x3, obese, no acute distress noted, ambulatory normal gait Orientation/consciousness: patient oriented x3 [facility] Head: Yes normocephalic Ears: external ears normal, TM's normal bilaterally and EAC's normal General nose exam: Normal external nose present and No nasal discharge present Face and sinus: Yes face symmetric Mouth: Normal oral and palatal mucosa present, tongue normal, oropharynx normal and moist mucous membranes Eyes General: appearance normal, both eyes and all related structures Neck Neck: Yes full ROM, Yes no lymphadenopathy and Yes supple Thyroid: Thyroid normal Carotids: no bruits Lymphatic: no lymphadenopathy noted Chest Chest palpation & inspection: normal inspection of the chest Resp Auscultation: clear to auscultation bilaterally Cardio Other: S1-S2 present regular rate and rhythm GI Inspection: Yes normal to inspection and Yes obesity Palpation (GI): Soft to palpation, nontender, no guarding and no masses Auscultation: normal bowel sounds General: Yes no CVA tenderness Male General Exam: Yes normal external exam Back/Spine/Pelvis Back: no CVA tenderness Skin General skin exam: no rashes or lesions noted Neuro General: patient oriented x3, gait normal, tone normal, moves all extremities, Normal light touch and pain sensation, no focal motor deficits and CN's II-XI intact bilaterally Sensory Exam: No Sensory deficit (Neuro) Extrem General: Yes full ROM, Yes no joint enlargement, Yes no clubbing, cyanosis or edema and Yes normal gait Psych Appearance: grossly normal and well kempt Mental Status: mental status grossly normal Speech and movement: Normal speech and movement present Affect: normal affect Attitude: cooperative Thought process: Normal thought process present Thought content: Normal thought content present Assessment and Plan Assessment & Plan (1) Obesity: Code(s): E66.9 - Obesity, unspecified Qualifiers: Obesity type: due to excess calories Obesity classification: adult class 2 (BMI 35 - 39.9) Serious obesity comorbidity presence: with serious comorbidity Body mass index: BMI 39.0-39.9 Qualified Code(s): E66.01 - Morbid (severe) obesity due to excess calories; Z68.39 - Body mass index [BMI] 39.0- 39.9, adult Plan: Will try Wegovy 0.25 mg per injection, inject once a week rotate sites of injection, discussed possible side effects of medication which may include nausea, abdominal cramping, diarrhea, possible side effects and risks involved with taking medication includes pancreatitis, cholelithiasis, vision loss, gastroparesis. Advised to stop taking this medication if any of these episodes occur. Continue with adhering to healthy eating habits and getting regular exercise at least 30 minutes daily. See me back for follow-up in 4 weeks (2) Essential hypertension: Code(s): I10 - Essential (primary) hypertension Plan: Hypertension poorly controlled, increased losartan dose to 100-12.5 mg tablet taken once a day in a.m.. Reinforced importance of following a healthy diet and getting regular exercise, managing stress levels well (3) Impaired fasting glucose: Code(s): R73.01 - Impaired fasting glucose Plan: Your previous fasting blood sugars were elevated above 100 mg/dL. Impaired glu cose metabolism increases the risk for developing diabetes mellitus type 2, as well as heart attack and stroke later on. Lifestyle changes that promotes weight loss, healthy eating habits, and regular exercise are important, and can prevent the progression to diabetes Medications: New Wegovy (semaglutide (weight loss)) administer weeks 1 through 4 of therapy 0.25 mg (0.5 mL) subcut QWEEK 2 mL 0RF 30 days NS E66.9 - Obesity, unspecified, I10 - Essential (primary) hypertension, R73.01 - Impaired fasting glucose losartan-hydrochlorothiazide 100-12.5 mg 1 tab PO DAILY 90 tabs 1RF I10 - Essential (primary) hypertension Discontinued losartan-hydrochlorothiazide 50-12.5 mg Discontinued Reason: Doctor's Order 1 tab PO DAILY 90 tabs 0RF I10 - Essential (primary) hypertension Coding Level of Care Code Est Pt Level 4 (71000) Complex EM visit Add On G2211 Diagnoses Class 2 severe obesity due to excess calories with serious comorbidity and body mass index (BMI) of 39.0 to 39.9 in adult E66.01; Z68.39 Obesity type: due to excess calories Obesity classification: adult class 2 (BMI 35 - 39.9) Serious obesity comorbidity presence: with serious comorbidity Body mass index: BMI 39.0-39.9 Essential hypertension I10 Impaired fasting glucose R73.01 Additional Codes MCKAYLA-7 Assessment Billing - MCKAYLA-7 Assessment Tool: MCKAYLA-7 Assessment [id number] ([id number])
[2024-02-26 10:35] VITALS: BP 166/70; PULSE 78; O2SAT 96; BMI 39.7
== END 2024-02-26 11:19 | disposition home or self-care (01) ==
PROVIDERS: PCP Internal Medicine; Visit Provider Internal Medicine
DX: I10 Essential (primary) hypertension (principal); E66.01 Morbid (severe) obesity due to excess calories; Z68.39 Body mass index [BMI] 39.0-39.9, adult; R73.01 Impaired fasting glucose
CPT/HCPCS: 99214; G2211

== ENCOUNTER 2024-02-27 08:30 | Outpatient (REF) | payer MEDICARE, BC, SELFPAY ==
[2024-02-27 10:58] LABS: Alanine Aminotransferase 26 U/L (0-40); Anion Gap 15 (12-20); Aspartate Amino Transferase 20 U/L (5-37); Blood Urea Nitrogen 14 mg/dL (9-16); Calcium 9.5 mg/dL (8.4-10.2); Carbon Dioxide 28 mmol/L (22-29); Chloride 103 mmol/L (96-108); Cholesterol 187 mg/dL (<200); Estimated Glomerular Filt Rate 52; Glucose Fasting 144 mg/dL (60-99); HDL Cholesterol 44 mg/dL (>40); LDL Cholesterol Calculated 121 mg/dL (<100); Potassium 4.5 mmol/L (3.3-5.1); Sodium 141 mmol/L (135-145); Triglycerides 110 mg/dL (<150)
[2024-02-27 11:21] LABS: Estimated Average Glucose 137 mg/dL; Hemoglobin A1c % 6.4 % (<6.0)
== END 2024-02-27 08:31 | disposition home or self-care (01) ==
LOC: HO.HMGCLDS 08:30
PROVIDERS: PCP Internal Medicine; Visit Provider Internal Medicine
DX: E78.2 Mixed hyperlipidemia (principal); R73.01 Impaired fasting glucose; E66.9 Obesity, unspecified; I10 Essential (primary) hypertension
CPT/HCPCS: 36415; 80048; 80061; 83036; 84450; 84460

== ENCOUNTER 2024-07-31 14:10 | Outpatient (AMB) | payer MEDICARE, BC, SELFPAY ==
[2024-07-31 14:11] VITALS: BP 150/82; PULSE 61; O2SAT 98; BMI 36.7
--- NOTE | 2024-07-31 14:11 | MHC.PC.OV ---
Vital Signs 07/31/24 14:11 Height 5 ft 10 in Weight 256 lb BMI 36.7 BP 150/82 H Blood Pressure Location Rt brachial Position Sitting Pulse 61 Pulse Source Pulse Oximeter Pulse Oximetry (%) 98 Oxygen Delivery Method Room Air Intake Visit Reasons: PE Intake Note: Pt is here today for his PE: Last colonoscopy 02/12/17 Allergies lisinopril Allergy (Unknown, Verified 07/31/24 14:12) cough morphine Allergy (Unknown, Verified 07/31/24 14:12) hives Medication List - Last Reconciled 07/31/24 by Michelle Mejía MD aspirin (Adult Low Dose Aspirin) 81 mg PO DAILY cholecalciferol (vitamin D3) 50 mcg PO DAILY flaxseed oil 1,000 mg PO DAILY lorazepam 0.5 mg PO DAILY PRN losartan-hydrochlorothiazide 100-12.5 mg 1 tab PO DAILY sertraline 50 mg PO DAILY Tobacco use date assessed: 07/31/24 Fall risk assessment: No Falls in past year Last assessed Fall Risk: 07/31/24 Dental Screening Dental Screen Date: 07/31/24 Did you have a dental visit in the last 12 months?: Yes Did you have a dental problem in the last 6 months where you did not have access to dental care?: Yes Was dental information given to patient?: Patient has dentist [facility] Medical History White coat syndrome with hypertension Mixed dyslipidemia Impaired fasting glucose History of retinal tear Hollenhorst plaque, both eyes Generalized anxiety disorder Panic disorder History of eczema Osteoarthritis of right knee Anxiety Obesity Essential hypertension Surgical History History of bariatric surgery History of total right knee replacement Family History Mother Congestive heart failure Social History Housing: House Alcohol intake: current Patient Tobacco Use Status: Never used Tobacco e-Cigarette/Vaping Use: Never Used Current occupational status: retired Cognitive needs: No Hearing needs: No Vision needs: No Questionnaire PHQ-9 Over the last 2 weeks, how often have you been bothered by any of the following problems? 1. Little interest or pleasure in doing things: not at all 2. Feeling down, depressed, or hopeless: not at all 3. Trouble falling or staying asleep, or sleeping too much: not at all 4. Feeling tired or having little energy: not at all 5. Poor appetite or overeating: several days 6. Feeling bad about yourself - or that you are a failure or have let yourself or your family down: not at all 7. Trouble concentrating on things, such as reading the newspaper or watching television: not at all 8. Moving or speaking so slowly that other people could have noticed. Or the opposite - being so fidgety or restless that you have been moving around a lot more than usual: not at all 9. Thoughts that you would be better off or of hurting yourself in some way: not at all Total score: 1 Source: Developed by Drs. Vernon Harry, Yandy Pate, Ming Borjas and colleagues, with an educational angie from [employer]. Thrive Questionnaire Date Thrive assessed: 07/31/24 I am a: Patient What is your living situation today?: I have a steady place to live Within the past 12 months, did the food you bought not last and you didn't have the money to get more?: Never true Within the past 12 months, did you worry whether your food would run out before you got money to buy more?: Never true Do you have trouble paying for medicines?: No Do you have trouble getting transportation to medical appointments?: No Do you have trouble paying your heating and electricity bill?: No Do you have trouble taking care of your child, family member or friend?: I choose not to answer this question Do you have trouble with day-to-day activities such as bathing, preparing meals, shopping, managing finances, etc.?: No Are you currently unemployed and looking for a job?: No Are you interested in more education?: No Please select the resources that you would like help with: None Currently or been in a relationship where the following occur: No concerns reported THRIVE Score: 0 MCKAYLA-7 AMB Questionnaire MCKAYLA-7 Date MCKAYLA - 7 assessed: 02/26/24 Source: Developed by Drs. Vernon L. PieroYandy stanton, Ming Borjas and colleagues, with an educational angie from [employer]. Physical exam (Primary Care) Vital Signs: Last Vital Signs Pulse 61 07/31/24 14:11 BP 150/82 H 07/31/24 14:11 Pulse Ox 98 07/31/24 14:11 Oxygen Delivery Method Room Air 07/31/24 14:11 BMI result Body Mass Index 36.7 Tobacco/Smoking Status: Tobacco use Status Tobacco use date assessed 07/31/24 07/31/24 14:13 Patient Tobacco Use Status Never used Tobacco 07/31/24 14:12 e-Cigarette/Vaping Use Never Used 07/31/24 14:12 PHQ-9: PHQ-9 Score PHQ-9: Total score 1 07/31/24 15:11 Thrive Assessment: Date of Thrive Assessment Date Thrive assessed 07/31/24 07/31/24 14:13 Currently or been in a relationship where the following occur: No concerns reported Immunizations pneumoc 20-hector conj-dip cr(PF) 0.5 mL IM syringe Performing Provider: Michelle Mejía MD [place] [facility] [place] [facility] Administered by: MIGDALIA Levi on 07/31/24 15:13 Dose Route Admin Location Dispensed Lot Number Expiration Date [facility] [employer] Manager 0.5 mL IM Right Deltoid 0.5 mL [id number] 01/17/26 [employer] VIS Given Date VIS Provided VIS Publication Date 07/31/24 Single Vaccine 21 Eligibility Eligibility Date Funding Source Not [facility] Eligible 07/31/24 Private Coding Diagnoses Essential hypertension I10 Class 2 severe obesity due to excess calories with serious comorbidity and body mass index (BMI) of 39.0 to 39.9 in adult E66.01; Z68.39 Body mass index: BMI 39.0-39.9 Obesity classification: adult class 2 (BMI 35 - 39.9) Obesity type: due to excess calories Serious obesity comorbidity presence: with serious comorbidity Generalized anxiety disorder F41.1 Impaired fasting glucose R73.01 Mixed dyslipidemia E78.2 White coat syndrome with hypertension I10 Screening for Malignant Neoplasm of Skin Z12.83 Lesion of skin of scalp L98.9 Assessment & Plan Assessment & Plan (1) Essential hypertension: Code(s): I10 - Essential (primary) hypertension Category: Medical (2) Obesity: Code(s): E66.9 - Obesity, unspecified Category: Medical Qualifiers: Body mass index: BMI 39.0-39.9 Obesity classification: adult class 2 (BMI 35 - 39.9) Obesity type: due to excess calories Serious obesity comorbidity presence: with serious comorbidity Qualified Code(s): E66.01 - Morbid (severe) obesity due to excess calories; Z68.39 - Body mass index [BMI] 39.0-39.9, adult (3) Generalized anxiety disorder: Code(s): F41.1 - Generalized anxiety disorder Category: Medical (4) Impaired fasting glucose: Code(s): R73.01 - Impaired fasting glucose Category: Medical (5) Mixed dyslipidemia: Code(s): E78.2 - Mixed hyperlipidemia Category: Medical (6) White coat syndrome with hypertension: Code(s): I10 - Essential (primary) hypertension Category: Medical (7) Screening for Malignant Neoplasm of Skin: Code(s): Z12.83 - Encounter for screening for malignant neoplasm of skin (8) Lesion of skin of scalp: Code(s): L98.9 - Disorder of the skin and subcutaneous tissue, unspecified Orders: Orders Comprehensive [place]. Panel Fast Today E66.01 - Morbid (severe) obesity due to excess calories, E78.2 - Mixed hyperlipidemia, F41.1 - Generalized anxiety disorder, I10 - Essential (primary) hypertension, R73.01 - Impaired fasting glucose, Z68.39 - Body mass index [BMI] 39.0-39.9, adult Vitamin D 25-OH Total Today E66.01 - Morbid (severe) obesity due to excess calories, E78.2 - Mixed hyperlipidemia, F41.1 - Generalized anxiety disorder, I10 - Essential (primary) hypertension, R73.01 - Impaired fasting glucose, Z68.39 - Body mass index [BMI] 39.0-39.9, adult PSA,Total (Free>4and<10) Today E66.01 - Morbid (severe) obesity due to excess calories, E78.2 - Mixed hyperlipidemia, F41.1 - Generalized anxiety disorder, I10 - Essential (primary) hypertension, R73.01 - Impaired fasting glucose, Z68.39 - Body mass index [BMI] 39.0-39.9, adult Hemoglobin A1c Today E66.01 - Morbid (severe) obesity due to excess calories, E78.2 - Mixed hyperlipidemia, F41.1 - Generalized anxiety disorder, I10 - Essential (primary) hypertension, R73.01 - Impaired fasting glucose, Z68.39 - Body mass index [BMI] 39.0-39.9, adult Lipid Panel Today E66.01 - Morbid (severe) obesity due to excess calories, E78.2 - Mixed hyperlipidemia, F41.1 - Generalized anxiety disorder, I10 - Essential (primary) hypertension, R73.01 - Impaired fasting glucose, Z68.39 - Body mass index [BMI] 39.0-39.9, adult Pneumococcal 20 Immunization Today Z23 - Encounter for immunization Referrals Dermatology Referral L98.9 - Disorder of the skin and subcutaneous tissue, unspecified, Z12.83 - Encounter for screening for malignant neoplasm of skin Medications: New pneumoc 20-hector conj-dip cr(PF) 0.5 mL IM ONCE 0.5 mL 0RF Z23 - Encounter for immunization
== END 2024-07-31 15:52 | disposition home or self-care (01) ==
PROVIDERS: PCP Internal Medicine; Visit Provider Internal Medicine
DX: Z23 Encounter for immunization (principal)

== ENCOUNTER → 2024-07-31 14:10 | Outpatient (BNVA) | payer MEDICARE, BC, SELFPAY | PROVIDERS: PCP Internal Medicine; Visit Provider Internal Medicine | DX: Z00.01 Encounter for general adult medical examination with abnormal findings (principal); Z23 Encounter for immunization; I10 Essential (primary) hypertension; E66.01 Morbid (severe) obesity due to excess calories; Z68.39 Body mass index [BMI] 39.0-39.9, adult; R73.01 Impaired fasting glucose; L98.9 Disorder of the skin and subcutaneous tissue, unspecified; F41.8 Other specified anxiety disorders | CPT/HCPCS: 90471; 90677; 96127; 99397 ==

== ENCOUNTER 2024-09-01 06:52 | Outpatient (REF) | payer MEDICARE, BC, SELFPAY ==
[2024-09-01 10:13] LABS: Estimated Average Glucose 117 mg/dL; Hemoglobin A1C 147.4107 umol/L; Hemoglobin A1c % 5.7 % (<6.0); Total Hemoglobin (HGBA1C) 3799.9091 umol/L
[2024-09-01 10:42] LABS: Alanine Aminotransferase 23 U/L (0-40); Alkaline Phosphatase 58 U/L (39-117); Anion Gap 11 (12-20); Aspartate Amino Transferase 26 U/L (5-37); Bilirubin Total 0.4 mg/dL (0.0-1.0); Blood Urea Nitrogen 25 mg/dL (9-16); Calcium 9.2 mg/dL (8.4-10.2); Carbon Dioxide 31 mmol/L (22-29); Chloride 103 mmol/L (96-108); Cholesterol 174 mg/dL (<200); Estimated Glomerular Filt Rate 48; Glucose Fasting 111 mg/dL (60-99); HDL Cholesterol 37 mg/dL (>40); LDL Cholesterol Calculated 118 mg/dL (<100); Potassium 4.6 mmol/L (3.3-5.1); Sodium 140 mmol/L (135-145); Total Protein 6.8 g/dL (6.5-8.0); Triglycerides 96 mg/dL (<150); Vitamin D 25-OH Total 89.3 ng/mL (>30)
[2024-09-01 10:46] LABS: PSA,Total (Free>4and<10) 0.52 ng/mL (0.00-4.00)
== END 2024-09-01 06:53 | disposition home or self-care (01) ==
LOC: HO.HMGCLDS 06:52
PROVIDERS: PCP Internal Medicine; Visit Provider Internal Medicine
DX: I10 Essential (primary) hypertension (principal); E78.2 Mixed hyperlipidemia; R73.01 Impaired fasting glucose; F41.1 Generalized anxiety disorder; E66.01 Morbid (severe) obesity due to excess calories; Z68.39 Body mass index [BMI] 39.0-39.9, adult; Z12.5 Encounter for screening for malignant neoplasm of prostate
CPT/HCPCS: 36415; 80053; 80061; 82306; 83036; 84153

== ENCOUNTER 2024-10-10 10:45 | Outpatient (AMB) | payer MEDICARE, BC, SELFPAY ==
--- NOTE | 2024-10-10 11:09 | A.OFFPSYCH_ITS ---
Intake Intake Visit Reasons: depression Allergies lisinopril Allergy (Unknown, Verified 08/05/24 01:47) cough morphine Allergy (Unknown, Verified 08/05/24 01:47) hives HPI- Psychiatric Chief Complaint: depression HPI Narrative: Patient seen in psychiatric follow-up. Patient's mood has been stable future oriented does number of interests that he enjoys doing. Patient often is help ing his who is chronically disabled intermittently sees his grandchildren who visit at the house. No new medical problems no panic attack or series anxiety Past Psychiatric History: hx depression panic Mental Status Exam Mental Status Exam Narrative: Mental Status Exam Narrative: Appearance: Casually dressed Behavior: Cooperative appropriate psychomotor: Within normal limits Speech: Normal volume and prosody Thought proccess logical and goal-directed Thought content: Future oriented no self-harming thoughts significant for issues related to interpersonal relationships and boundaries Mood: Euthymic Affect: Appropriate to mood full affect SI:denies HI:denies VH/AH:none Delusions: None Insight/judgment: Good insight and judgment Memory/cog: Intact Assessment and Plan Assessment & Plan (1) Generalized anxiety disorder: Status: Acute Code(s): F41.1 - Generalized anxiety disorder Plan Continue current plan discussed issues related to family interpersonal issues management of his son with disability Patient wishes to continue on current dose of sertraline Medications: Refilled sertraline 50 mg PO DAILY 90 tabs 3RF Counseling and coordination of Care Pt. Self Management counseling: Problem solving Medication management counseling: Effectiveness and Side effects Details: I spent [] minutes reviewing the record, seeing the patient and documenting in the medical record. Counseling provided to the patient/caregiver as outlined below. Addressed patient/caregiver concerns regarding current medication regime including effective adherence. Addressed patient/caregiver concerns regarding diagnosis and prognosis including accuracy of diagnosis, prognosis over time, impact of diagnosis. Addressed patient/caregiver concerns regarding impact of recent stressors. [facility] Medical History (Updated 09/01/24 @ 17:32 by [facility] Depression with anxiety White coat syndrome with hypertension Mixed dyslipidemia Impaired fasting glucose History of retinal tear Hollenhorst plaque, both eyes Generalized anxiety disorder Panic disorder History of eczema Osteoarthritis of right knee Anxiety Obesity Essential hypertension Surgical History History of bariatric surgery History of total right knee replacement Family History Mother Congestive heart failure Social History Housing: House Alcohol intake: current Patient Tobacco Use Status: Never used Tobacco e-Cigarette/Vaping Use: Never Used Current occupational status: retired Cognitive needs: No Hearing needs: No Vision needs: No Social History: 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
== END 2024-10-10 11:38 | disposition home or self-care (01) ==
LOC: HO.HOP 10:45
PROVIDERS: PCP Internal Medicine; Visit Provider Psychiatry & Neurology Psychiatry
DX: F41.1 Generalized anxiety disorder (principal)
CPT/HCPCS: 99214

== ENCOUNTER → 2024-10-10 10:45 | Outpatient (BNVA) | payer MEDICARE, BC, SELFPAY | PROVIDERS: PCP Internal Medicine; Visit Provider Psychiatry & Neurology Psychiatry | DX: F41.1 Generalized anxiety disorder (principal) | CPT/HCPCS: 99212 ==

== ENCOUNTER 2024-12-25 09:07 | Outpatient (REF) | payer MEDICARE, BC, SELFPAY ==
[2024-12-25 10:47] LABS: Estimated Average Glucose 120 mg/dL; Hemoglobin A1C 155.0711 umol/L; Hemoglobin A1c % 5.8 % (<6.0); Total Hemoglobin (HGBA1C) 3896.0356 umol/L
[2024-12-25 10:59] LABS: Alanine Aminotransferase 26 U/L (0-40); Anion Gap 13 (12-20); Aspartate Amino Transferase 37 U/L (5-37); Blood Urea Nitrogen 26 mg/dL (9-16); Calcium 9.7 mg/dL (8.4-10.2); Carbon Dioxide 28 mmol/L (22-29); Chloride 103 mmol/L (96-108); Cholesterol 187 mg/dL (<200); Estimated Glomerular Filt Rate 58; Glucose Fasting 121 mg/dL (60-99); HDL Cholesterol 43 mg/dL (>40); LDL Cholesterol Calculated 130 mg/dL (<100); Potassium 4.7 mmol/L (3.3-5.1); Sodium 139 mmol/L (135-145); Triglycerides 73 mg/dL (<150)
== END 2024-12-25 09:08 | disposition home or self-care (01) ==
LOC: HO.HMGCLDS 09:07
PROVIDERS: PCP Internal Medicine; Visit Provider Internal Medicine
DX: E78.2 Mixed hyperlipidemia (principal); R73.01 Impaired fasting glucose; H34.213 Partial retinal artery occlusion, bilateral; E66.01 Morbid (severe) obesity due to excess calories; I10 Essential (primary) hypertension; Z68.39 Body mass index [BMI] 39.0-39.9, adult
CPT/HCPCS: 36415; 80048; 80061; 82306; 83036; 84450; 84460

== ENCOUNTER 2024-12-29 10:30 | Outpatient (AMB) | payer MEDICARE, BC, SELFPAY ==
--- NOTE | 2024-12-29 10:59 | A.OFFPC_ITS ---
Vital Signs 12/29/24 11:07 12/29/24 11:42 Height 5 ft 10 in Weight 250 lb BMI 35.9 BP 162/78 H 135/85 Blood Pressure Location Lt brachial Lt brachial Position Sitting Sitting Respiration 16 Pulse 58 Pulse Source Pulse Oximeter Temp 98.4 F Temp Source Oral Pulse Oximetry (%) 98 Oxygen Delivery Method Room Air Intake Visit Reasons: 5m follow up Intake Note: Pt is here today for his 5mo. f/u Allergies lisinopril Allergy (Unknown, Verified 12/29/24 11:36) cough morphine Allergy (Unknown, Verified 12/29/24 11:36) hives Medication List - Last Reconciled 12/29/24 by Michelle Mejía MD aspirin (Adult Low Dose Aspirin) 81 mg PO DAILY cholecalciferol (vitamin D3) 50 mcg PO DAILY flaxseed oil 1,000 mg PO DAILY lorazepam 0.5 mg PO DAILY PRN losartan-hydrochlorothiazide 100-12.5 mg 1 tab PO DAILY sertraline 50 mg PO DAILY Tobacco use date assessed: 12/29/24 Fall risk assessment: No Falls in past year Last assessed Fall Risk: 12/29/24 Dental Screening Dental Screen Date: 12/29/24 Did you have a dental visit in the last 12 months?: Yes Did you have a dental problem in the last 6 months where you did not have access to dental care?: No Was dental information given to patient?: Patient has dentist HPI 5m follow up HPI Details 74-year-old male with history of hyperte nsion, hyperlipidemia, and p rediabetes, here today for his follow-up. He is currently losartan HCTZ with blood pressure stable controlled on present treatment. He has been feeling well, with no complaints at present time. Previously was on semaglutide given at his medical weight loss clinic but stopped taking it due to the high cost. Has been following a healthy diet and exercising regularly but weight seems to have plateaued. Would like to try another weight loss medication. Recent fasting labs showed fasting glucose in the prediabetic range but hemoglobin A1c at 5.8%, LDL cholesterol at 130 with normal triglycerides and total cholesterol [facility] Medical History Depression with anxiety White coat syndrome with hypertension Mixed dyslipidemia Impaired fasting glucose History of retinal tear Hollenhorst plaque, both eyes Generalized anxiety disorder Panic disorder History of eczema Osteoarthritis of right knee Anxiety Obesity Essential hypertension Surgical History History of bariatric surgery History of total right knee replacement Family History Mother Congestive heart failure Social History Housing: House Alcohol intake: current Patient Tobacco Use Status: Never used Tobacco e-Cigarette/Vaping Use: Never Used Current occupational status: retired Cognitive needs: No Hearing needs: No Vision needs: No Questionnaire PHQ-9 Over the last 2 weeks, how often have you been bothered by any of the following problems? 1. Little interest or pleasure in doing things: not at all 2. Feeling down, depressed, or hopeless: not at all 3. Trouble falling or staying asleep, or sleeping too much: not at all 4. Feeling tired or having little energy: not at all 5. Poor appetite or overeating: several days 6. Feeling bad about yourself - or that you are a failure or have let yourself or your family down: not at all 7. Trouble concentrating on things, such as reading the newspaper or watching television: not at all 8. Moving or speaking so slowly that other people could have noticed. Or the opposite - being so fidgety or restless that you have been moving around a lot more than usual: not at all 9. Thoughts that you would be better off or of hurting yourself in some way: not at all Total score: 1 Depression Screening Interpretation: Positive Depression Screening Follow-up: Existing condition, In treatment and Community Mental Health Worker F/U (Followed by psychiatrist, Dr. Silva) Depression Screening Done: Yes 07535 - PHQ-9 Billing: Yes Source: Developed by Drs. Vernon Harry, Yandy Pate, Ming Borjas and colleagues, with an educational angie from [employer]. Thrive Questionnaire Date Thrive assessed: 12/29/24 I am a: Patient What is your living situation today?: I have a steady place to live Within the past 12 months, did the food you bought not last and you didn't have the money to get more?: Never true Within the past 12 months, did you worry whether your food would run out before you got money to buy more?: Never true Do you have trouble paying for medicines?: No Do you have trouble getting transportation to medical appointments?: No Do you have trouble paying your heating and electricity bill?: No Do you have trouble taking care of your child, family member or friend?: No Do you have trouble with day-to-day activities such as bathing, preparing meals, shopping, managing finances, etc.?: No Are you currently unemployed and looking for a job?: No Are you interested in more education?: No Please select the resources that you would like help with: Paying for medicine Currently or been in a relationship where the following occur: No concerns reported THRIVE Score: 0 AUDIT C Alcohol Use Questionnaire (AUDIT-C) 1. How often do you have a drink containing alcohol?: Monthly or less 2. How many drinks containing alcohol do you have on a typical day when you are drinking?: 1 or 2 3. How often do you have six or more drinks on one occasion?: Never Total Score: 1 MCKAYLA-7 AMB Questionnaire MCKAYLA-7 Date MCKAYLA - 7 assessed: 02/26/24 Feeling nervous, anxious, or on edge: 0 = Not at all Not being able to stop or control worryin = Not at all Worrying too much about different things: 0 = Not at all Trouble relaxin = Not at all Being so restless that it is hard to sit still: 0 = Not at all Becoming easily annoyed or irritable: 0 = Not at all Feeling afraid as if something awful might happen: 0 = Not at all Total MCKAYLA-7 score (0-4 normal; 5-9 mild; 10-14 moderate; 15-21 severe): 0 Source: Developed by Drs. Vernon Harry, Yandy Pate, Ming Borjas and colleagues, with an educational angie from [employer]. Review of Systems Const Denies body aches, Denies fatigue, Denies fever(s), Denies headache(s), Denies malaise, Denies poor appetite and Denies weakness Eyes Reports no additional complaints ENT Denies dizziness, Denies headache(s) and Denies nasal congestion Card Denies chest pain, Denies irregular heart rhythm, Denies lightheadedness and Denies dyspnea Resp Denies cough and Denies dyspnea GI Denies abdominal pain, Denies melena, Denies hematochezia, Denies change in bowel habits, Denies heartburn and Denies nausea Denies hematuria, Denies oliguria, Denies difficulty urinating and Denies dysuria Musc Denies back pain, Denies myalgias, Denies arthralgias, Denies joint swelling and Denies muscle cramps Skin/Breast Denies lesions and Denies rash Neuro Denies dizziness, Denies headache(s), Denies convulsions, Denies Sensory deficit (Neuro), Denies paresthesias and Denies weakness Psych Reports no additional complaints Endo Denies fatigue and Denies polyphagia Ricardo/Lymph Reports no additional complaints Aller/Immun Reports no additional complaints Physical exam (Primary Care) Vital Signs: Last Vital Signs Temp 98.4 F 12/29/24 11:07 Pulse 58 12/29/24 11:07 Resp 16 12/29/24 11:07 BP 135/85 12/29/24 11:42 Pulse Ox 98 12/29/24 11:07 Oxygen Delivery Method Room Air 12/29/24 11:07 BMI result Body Mass Index 35.9 Tobacco/Smoking Status: Tobacco use Status Tobacco use date assessed 12/29/24 12/29/24 11:00 Patient Tobacco Use Status Never used Tobacco 12/29/24 11:00 e-Cigarette/Vaping Use Never Used 12/29/24 11:00 Depression Screening Interpretation: Positive Depression Screening Follow-up: Existing condition, In treatment and Community Mental Health Worker F/U (Followed by psychiatrist, Dr. Silva) Thrive Assessment: Date of Thrive Assessment Date Thrive assessed 07/31/24 12/29/24 11:00 Currently or been in a relationship where the following occur: No concerns reported Const Other: Alert oriented x3, obese, no acute distress noted, ambulatory normal gait HENMT Head: Yes normocephalic Ears: external ears normal General nose exam: Normal external nose present Face and sinus: Yes face symmetric Mouth: Normal oral and palatal mucosa present and moist mucous membranes Eyes General: appearance normal, both eyes and all related structures Neck Neck: Yes full ROM, Yes no lymphadenopathy and Yes supple Thyroid: Thyroid normal Lymphatic: no lymphadenopathy noted Resp Auscultation: clear to auscultation bilaterally Cardio Other: S1-S2 present regular rate and rhythm GI Inspection: Yes normal to inspection and Yes obesity Palpation (GI): Soft to palpation, nontender, no guarding and no masses Auscultation: normal bowel sounds General: Yes no CVA tenderness Male General Exam: Yes normal external exam Back/Spine/Pelvis Back: no CVA tenderness Skin Other: Slightly raised berman colored patches on scalp Neuro General: gait normal, tone normal, moves all extremities, Normal light touch and pain sensation, no focal motor deficits and CN's II-XI intact bilaterally Sensory Exam: No Sensory deficit (Neuro) Extrem General: Yes full ROM, Yes no joint enlargement, Yes no clubbing, cyanosis or edema and Yes normal gait Psych Appearance: grossly normal and well kempt Mental Status: mental status grossly normal Speech and movement: Normal speech and movement present Affect: normal affect Attitude: cooperative Thought process: Normal thought process present Thought content: Normal thought content present Results Reviewed Results Reviewed: Name: Arley Mendoza Age/Sex: 74/M : 1950 Unit#: [id number] Attend Dr: Michelle Mejía MD Re12/25/24 Status: DEP REF Location: [facility] Disch: SPEC : [id number] VIPIN: 12/25/24 STATUS: COMP REQ : [id number] RECD: 12/25/[address]: Michelle Mejía MD COMP: 12/25/24 ENTERED: 12/25/[address] [facility] [address]: ORDERED: Met Prof Fast, AST, ALT, Lipid Panel, Vitamin D 25-OH Test Result Flag Reference Sodium 139 135-145 mmol/L Potassium 4.7 3.3-5.1 mmol/L CL 103 96-108 mmol/L CO2 28 22-29 mmol/L Gap 13 12-20 BUN 26 H 9-16 mg/dL Creat 1.23 0.5-1.4 mg/dL eGFR 58 Chronic Kidney Disease: Estimated GFR < 60 mL/min/1.73m2 Severe Kidney Disease: Estimated GFR < 15 mL/min/1.73m2 FBS 121 H 60-99 mg/dL A fasting glucose from 100-125 mg/dl is considered impaired (pre-diabetes). CA 9.7 8.4-10.2 mg/dL AST (GOT) 37 5-37 U/L ALT (GPT) 26 0-40 U/L Triglyceride 73 <150 mg/dL Desirable Triglyceride: less than 150 mg/dL Borderline High Triglyceride 150-199 mg/dL High Triglyceride: 200-499 mg/dL Very High Triglyceride: greater than or equal to 5OO mg/dL Cholesterol 187 <200 mg/dL Desirable Cholesterol: less than 200 mg/dL Borderline High Cholesterol: 200-239 mg/dL High Cholesterol: greater than 239 mg/dL LDL Calculated 130 H <100 mg/dL Desirable LDL: less than 100 mg/dL Near Optimal/Above Optimal LDL: 110-129 mg/dL Borderline High LDL: 130-159 mg/dL High LDL: 160-189 mg/dL Very High LDL: greater than or equal to 190 mg/dL HDL 43 >40 mg/dL Desirable HDL: greater than 40 mg/dL Note: This HDL assay may give artificially low results in patients with liver disease. Vitamin D 25-OH 66.0 >30 ng/mL Health Based Reference Values* < 20 ng/mL Deficient 20-30 ng/mL Insufficient > 30 ng/mL Sufficient Laboratory Tests 12/25/24 09:16 Estimat Average Glucose 120 Hemoglobin A1c % 5.8 Coding Level of Care Code Est Pt Level 4 (88978) Complex EM visit Add On G2211 Diagnoses Class 2 severe obesity due to excess calories with serious comorbidity and body mass index (BMI) of 39.0 to 39.9 in adult E66.01; Z68.39 Body mass index: BMI 39.0-39.9 Obesity classification: adult class 2 (BMI 35 - 39.9) Obesity type: due to excess calories Serious obesity comorbidity presence: with serious comorbidity White coat syndrome with hypertension I10 Mixed dyslipidemia E78.2 Impaired fasting glucose R73.01 Additional Codes PHQ-9 - 90160 - PHQ-9 Billing: Yes ([id number]) Assessment & Plan Assessment & Plan (1) Obesity: Code(s): E66.9 - Obesity, unspecified Category: Medical Qualifiers: Body mass index: BMI 39.0-39.9 Obesity classification: adult class 2 (BMI 35 - 39.9) Obesity type: due to excess calories Serious obesity comorbidity presence: with serious comorbidity Qualified Code(s): E66.01 - Morbid (severe) obesity due to excess calories; Z68.39 - Body mass index [BMI] 39.0-39.9, adult Plan: Continue with adherence to healthy eating habits and regular exercise. Will try on phentermine topiramate to 3.75 mg-23 mg ER 1 capsule once a day to be taken in the morning. Follow-up in February 2025 (2) White coat syndrome with hypertension: Code(s): I10 - Essential (primary) hypertension Category: Medical Plan: Continue losartan HCTZ at the same dose. Reinforced importance of following low-salt diet and getting at least 30 minutes of moderate intensity exercise daily (3) Mixed dyslipidemia: Code(s): E78.2 - Mixed hyperlipidemia Category: Medical Plan: Reinforced importance of following a low-cholesterol diet and getting regular exercise. (4) Impaired fasting glucose: Code(s): R73.01 - Impaired fasting glucose Category: Medical Plan: Your previous fasting blood sugars were elevated above 100 mg/dL. Impaired glucose metabolism increases the risk for developing diabetes mellitus type 2, as well as heart attack and stroke later on. Lifestyle changes that promotes weight loss, healthy eating habits, and regular exercise are important, and can prevent the progression to diabetes Medications: New phentermine-topiramate 3.75-23 mg ER 1 cap PO DAILY 30 caps 0RF 30 days E66.01 - Morbid (severe) obesity due to excess calories, Z68.39 - Body mass index [BMI] 39.0-39.9, adult
[2024-12-29 11:07] VITALS: BP 162/78; PULSE 58; RESP 16; TEMP 36.9; O2SAT 98; BMI 35.9
[2024-12-29 11:42] VITALS: BP 135/85
== END 2024-12-29 11:55 | disposition home or self-care (01) ==
LOC: HO.HMCC 10:31
PROVIDERS: PCP Internal Medicine; Visit Provider Internal Medicine
DX: E66.01 Morbid (severe) obesity due to excess calories (principal); Z68.39 Body mass index [BMI] 39.0-39.9, adult; I10 Essential (primary) hypertension; E78.2 Mixed hyperlipidemia; R73.01 Impaired fasting glucose

== ENCOUNTER → 2024-12-29 10:30 | Outpatient (BNVA) | payer MEDICARE, BC, SELFPAY | PROVIDERS: PCP Internal Medicine; Visit Provider Internal Medicine | DX: E66.01 Morbid (severe) obesity due to excess calories (principal); Z68.39 Body mass index [BMI] 39.0-39.9, adult; I10 Essential (primary) hypertension; E78.2 Mixed hyperlipidemia; R73.01 Impaired fasting glucose; Z71.3 Dietary counseling and surveillance | CPT/HCPCS: 96127; 99212 ==

== ENCOUNTER 2025-02-04 10:22 | Outpatient (AMB) | payer MEDICARE, BC, SELFPAY ==
--- NOTE | 2025-02-04 10:59 | MHC.OFFVISPS ---
Intake Intake Visit Reasons: depression Allergies lisinopril Allergy (Unknown, Verified 12/29/24 11:36) cough morphine Allergy (Unknown, Verified 12/29/24 11:36) hives HPI- Psychiatric Chief Complaint: depression HPI Narrative: Pt seen in f/u mood stable generally doing well now on glp-1 doing well grandkids come over on the weekends No new medical problems . Patient without significant episodes of panic or depression Past Psychiatric History: hx depression panic Mental Status Exam Mental Status Exam Narrative: Mental Status Exam Narrative: Appearance: Casually dressed Behavior: Cooperative appropriate psychomotor: Within normal limits Speech: Normal volume and prosody Thought proccess logical and goal-directed Thought content: Future oriented no self-harming thoughts significant for issues related to interpersonal relationships and boundaries with his son ongoing Mood: Euthymic Affect: Appropriate to mood full affect SI:denies HI:denies VH/AH:none Delusions: None Insight/judgment: Good insight and judgment Memory/cog: Intact Assessment and Plan Assessment & Plan (1) Generalized anxiety disorder: Status: Acute Code(s): F41.1 - Generalized anxiety disorder (2) Essential hypertension: Status: Acute Code(s): I10 - Essential (primary) hypertension Plan Patient stable comfortable with staying on sertraline no significant side effects noted Medications: Refilled sertraline 50 mg PO DAILY 90 tabs 3RF sertraline 50 mg PO DAILY 90 tabs 3RF Counseling and coordination of Care Details-Self Mgmt counseling: Interpersonal issues with family issues related to aging Details-Med Mgmt counseling: Patient stable on current regimen may be able to follow-up with Diagnosis and Prognosis Counseling: Adequacy of current interventions Details-Diagnosis/Prognosis counseling: Patient feels good on low-dose sertraline wishes to continue no complaints of side effects Details: I spent [30] minutes reviewing the record, seeing the patient and documenting in the medical record. Counseling provided to the patient/caregiver as outlined below. Addressed patient/caregiver concerns regarding current medication regime including effective adherence. Addressed patient/caregiver concerns regarding diagnosis and prognosis including accuracy of diagnosis, prognosis over time, impact of diagnosis. Addressed patient/caregiver concerns regarding impact of recent stressors. [facility] Medical History Depression with anxiety White coat syndrome with hypertension Mixed dyslipidemia Impaired fasting glucose History of retinal tear Hollenhorst plaque, both eyes Generalized anxiety disorder Panic disorder History of eczema Osteoarthritis of right knee Anxiety Obesity Essential hypertension Surgical History History of bariatric surgery History of total right knee replacement Family History Mother Congestive heart failure Social History Housing: House Alcohol intake: current Patient Tobacco Use Status: Never used Tobacco e-Cigarette/Vaping Use: Never Used Current occupational status: retired Cognitive needs: No Hearing needs: No Vision needs: No Social History: 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
== END 2025-02-04 11:13 | disposition home or self-care (01) ==
LOC: HO.HOP 10:22
PROVIDERS: PCP Internal Medicine; Visit Provider Psychiatry & Neurology Psychiatry
DX: F41.1 Generalized anxiety disorder (principal); I10 Essential (primary) hypertension
CPT/HCPCS: 99214

== ENCOUNTER → 2025-02-04 10:22 | Outpatient (BNVA) | payer MEDICARE, BC, SELFPAY | PROVIDERS: PCP Internal Medicine; Visit Provider Psychiatry & Neurology Psychiatry | DX: F41.1 Generalized anxiety disorder (principal); I10 Essential (primary) hypertension | CPT/HCPCS: 99212 ==

== ENCOUNTER 2025-03-16 13:03 | Outpatient (AMB) | payer MEDICARE, BC, SELFPAY ==
[2025-03-16 13:06] VITALS: BP 142/80; PULSE 62; O2SAT 97; BMI 35.3
--- NOTE | 2025-03-16 13:06 | A.OFFPC_ITS ---
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 Accompanied by: Self / Same As Patient Allergies lisinopril Allergy (Unknown, Verified 03/16/25 13:21) cough morphine Allergy (Unknown, Verified 03/16/25 13:21) hives Medication List - Last Reconciled 03/16/25 by Michelle Mejía MD aspirin (Adult Low Dose Aspirin) 81 mg PO DAILY cholecalciferol (vitamin D3) 50 mcg PO DAILY flaxseed oil 1,000 mg PO DAILY lorazepam 0.5 mg PO DAILY PRN losartan-hydrochlorothiazide 100-12.5 mg 1 tab PO DAILY semaglutide (weight loss) (Wegovy) 1 mg subcut QWEEK sertraline 50 mg PO DAILY Tobacco use date assessed: 12/29/24 Fall risk assessment: No Falls in past year Last assessed Fall Risk: 03/16/25 Dental Screening Dental Screen Date: 12/29/24 HPI F/U weight on phentermine-topiramate HPI Details - The patient is a 75-year-old male pres enting for follow-up with regards to his weight - The patient has been using GLP-1 receptionist tor agonist therapy for weight management for approximately one year, with a reported weight loss of almost 50 pounds. - Initially, the patient was on Wegovy s elke 04/2024 with good results, has lost a significant amount of weight on it. he however had to switch to phentermine -topiramate tablets last December 2024 as he was unable to afford paying [id number] for the Wegovy. he was combining this with regular exercise and adhering to healthy eating habits, but was unable to lose any weight and actually has gained some back. He has since started back on we go be which she gets from an online med provider last month. - The patient has a history of hyperlipi demia, with cholesterol levels noted to be slightly elevated in recent tests. - Blood pressure readings have historica lly been above 140 mmHg systolic, with a recent reading of 142/80 mmHg, which improved to 125/80 mmHg after relaxation. [facility] Medical History (Updated 03/16/25 @ 15:47 by Michelle Mejía MD) Obesity (BMI 30-39.9) Depression with anxiety White coat syndrome with hypertension Mixed dyslipidemia Impaired fasting glucose History of retinal tear Hollenhorst plaque, both eyes History of eczema Osteoarthritis of right knee Obesity Essential hypertension Surgical History History of bariatric surgery History of total right knee replacement Family History Mother Congestive heart failure Social History Housing: House Alcohol intake: current Patient Tobacco Use Status: Never used Tobacco e-Cigarette/Vaping Use: Never Used Current occupational status: retired Cognitive needs: No Hearing needs: No Vision needs: No Questionnaire PHQ-9 Over the last 2 weeks, how often have you been bothered by any of the following problems? 1. Little interest or pleasure in doing things: not at all 2. Feeling down, depressed, or hopeless: not at all 3. Trouble falling or staying asleep, or sleeping too much: several days 4. Feeling tired or having little energy: not at all 5. Poor appetite or overeating: not at all 6. Feeling bad about yourself - or that you are a failure or have let yourself or your family down: not at all 7. Trouble concentrating on things, such as reading the newspaper or watching television: not at all 8. Moving or speaking so slowly that other people could have noticed. Or the opposite - being so fidgety or restless that you have been moving around a lot more than usual: not at all 9. Thoughts that you would be better off or of hurting yourself in some way: not at all Total score: 1 Depression Screening Interpretation: Negative Depression Screening Done: Yes 69253 - PHQ-9 Billing: Yes Source: Developed by Yandy SantoroW. Rio, Ming Borjas and colleagues, with an educational angie from [employer]. Thrive Questionnaire Date Thrive assessed: 03/16/25 I am a: Patient What is your living situation today?: I have a steady place to live Within the past 12 months, did the food you bought not last and you didn't have the money to get more?: Never true Within the past 12 months, did you worry whether your food would run out before you got money to buy more?: Never true Do you have trouble paying for medicines?: No Do you have trouble getting transportation to medical appointments?: No Do you have trouble paying your heating and electricity bill?: No Do you have trouble taking care of your child, family member or friend?: No Do you have trouble with day-to-day activities such as bathing, preparing meals, shopping, managing finances, etc.?: No Are you currently unemployed and looking for a job?: No Are you interested in more education?: No Please select the resources that you would like help with: Paying for medicine Currently or been in a relationship where the following occur: No concerns reported THRIVE Score: 0 AUDIT C Alcohol Use Questionnaire (AUDIT-C) 1. How often do you have a drink containing alcohol?: Monthly or less 2. How many drinks containing alcohol do you have on a typical day when you are drinking?: 1 or 2 3. How often do you have six or more drinks on one occasion?: Never Total Score: 1 Score Reviewed/Action Taken: Yes MCKAYLA-7 AMB Questionnaire MCKAYLA-7 Date MCKAYLA - 7 assessed: 03/16/25 Feeling nervous, anxious, or on edge: 0 = Not at all Not being able to stop or control worryin = Not at all Worrying too much about different things: 0 = Not at all Trouble relaxin = Not at all Being so restless that it is hard to sit still: 0 = Not at all Becoming easily annoyed or irritable: 0 = Not at all Feeling afraid as if something awful might happen: 0 = Not at all Total MCKAYLA-7 score (0-4 normal; 5-9 mild; 10-14 moderate; 15-21 severe): 0 Source: Developed by Drs. Vernon Harry, Yandy BMing Garcia and colleagues, with an educational angie from [employer]. MCKAYLA-7 Assessment Billing MCKAYLA-7 Assessment Tool: MCKAYLA-7 Assessment 65378 Review of Systems Const Denies body aches, Denies headache(s), Denies malaise, Denies poor appetite and Denies weakness Eyes Reports no additional complaints ENT Denies dizziness, Denies headache(s) and Denies nasal congestion Card Denies chest pain, Denies irregular heart rhythm, Denies lightheadedness and Denies dyspnea Resp Denies cough and Denies dyspnea GI Denies abdominal pain, Denies melena, Denies hematochezia, Denies change in bowel habits and Denies heartburn Denies hematuria, Denies difficulty urinating and Denies dysuria Musc Denies back pain, Denies myalgias, Denies arthralgias, Denies joint swelling and Denies muscle cramps Skin/Breast Denies lesions and Denies rash Neuro Denies dizziness, Denies headache(s), Denies convulsions, Denies Sensory deficit (Neuro), Denies paresthesias and Denies weakness Psych Reports no additional complaints Endo Denies polyphagia Ricardo/Lymph Reports no additional complaints Aller/Immun Reports no additional complaints Physical exam (Primary Care) Vital Signs: Last Vital Signs Pulse 62 03/16/25 13:06 BP 142/80 H 03/16/25 13:06 Pulse Ox 97 03/16/25 13:06 BMI result Body Mass Index 35.3 Tobacco/Smoking Status: Tobacco use Status Tobacco use date assessed 12/29/24 03/16/25 13:07 Patient Tobacco Use Status Never used Tobacco 03/16/25 13:07 e-Cigarette/Vaping Use Never Used 03/16/25 13:07 PHQ-9: PHQ-9 Score PHQ-9: Total score 1 03/16/25 13:46 Depression Screening Interpretation: Negative Thrive Assessment: Date of Thrive Assessment Date Thrive assessed 03/16/25 03/16/25 13:07 Currently or been in a relationship where the following occur: No concerns reported Const Other: Alert oriented x3, obese, no acute distress noted, ambulatory normal gait HENMT Face and sinus: Yes face symmetric Mouth: Normal oral and palatal mucosa present and moist mucous membranes Eyes General: appearance normal, both eyes and all related structures Neck Neck: Yes full ROM, Yes no lymphadenopathy and Yes supple Thyroid: Thyroid normal Lymphatic: no lymphadenopathy noted Resp Auscultation: clear to auscultation bilaterally Cardio Other: S1-S2 present regular rate and rhythm GI Inspection: Yes normal to inspection and Yes obesity Palpation (GI): Soft to palpation, nontender, no guarding and no masses Auscultation: normal bowel sounds General: Yes no CVA tenderness Male General Exam: Yes normal external exam Back/Spine/Pelvis Back: no CVA tenderness Neuro General: gait normal, tone normal, moves all extremities, Normal light touch and pain sensation, no focal motor deficits and CN's II-XI intact bilaterally Sensory Exam: No Sensory deficit (Neuro) Extrem General: Yes full ROM, Yes no joint enlargement, Yes no clubbing, cyanosis or edema and Yes normal gait Psych Appearance: grossly normal and well kempt Mental Status: mental status grossly normal Speech and movement: Normal speech and movement present Affect: normal affect Attitude: cooperative Coding Level of Care Code Est Pt Level 4 (85804) Diagnoses Essential hypertension I10 Mixed dyslipidemia E78.2 Obesity (BMI 30-39.9) E66.9 Additional Codes MCKAYLA-7 Assessment Billing - MCKAYLA-7 Assessment Tool: MCKAYLA-7 Assessment 36940 ([id number]) PHQ-9 - 70400 - PHQ-9 Billing: Yes ([id number]) Assessment & Plan Assessment & Plan (1) Essential hypertension: Code(s): I10 - Essential (primary) hypertension Category: Medical Plan: Continued on losartan HCTZ 100-12.5 mg daily (2) Mixed dyslipidemia: Code(s): E78.2 - Mixed hyperlipidemia Category: Medical Plan: Reinforced importance of following a low-cholesterol diet and getting regular exercise, continue taking flaxseed oil (3) Obesity (BMI 30-39.9): Code(s): E66.9 - Obesity, unspecified Category: Medical Plan: Recent has restarted back on we go be, which she gets from an online med provider. Combined this with adherence to healthy eating habits and regular exercise. Will see him back for follow-up in 3 Plan continued monitoring of liver function and cholesterol levels due to the ongoing use of GLP-1 receptor agonist therapy. The patient will undergo regular blood pressure checks to manage hypertension effectively. Screening for clotting disorders is recommended due to the family history of such conditions. The patient is advised to maintain a high-protein, low-carbohydrate diet to support weight management and reduce cardiovascular risk. Follow-up blood work is scheduled for April to reassess cholesterol levels and liver function, with a telehealth visit planned to review these results. Patient was informed and verbally consented to the use of an ambient scribe for clinic note documentation during this visit. Orders: Orders Aspartate Amino Transferase 04/25/25 E78.2 - Mixed hyperlipidemia, I10 - Essential (primary) hypertension, R73.01 - Impaired fasting glucose Vitamin B12 and Folate 04/25/25 R53.83 - Other fatigue Lipid Panel 04/25/25 E78.2 - Mixed hyperlipidemia, I10 - Essential (primary) hypertension, R73.01 - Impaired fasting glucose Basic Metabolic Panel Fasting 04/25/25 E78.2 - Mixed hyperlipidemia, I10 - Essential (primary) hypertension, R73.01 - Impaired fasting glucose Alanine Aminotransferase 04/25/25 E78.2 - Mixed hyperlipidemia, I10 - Essential (primary) hypertension, R73.01 - Impaired fasting glucose TSH reflex Free T4 04/25/25 E78.2 - Mixed hyperlipidemia, I10 - Essential (primary) hypertension, R73.01 - Impaired fasting glucose Vitamin D 25-OH Total 04/25/25 R53.83 - Other fatigue
--- OUTSIDE RECORDS SUMMARY | 2025-03-16 13:45 | XMS_ITS | Patient Health Record ---
Author Organization [facility] Address [address] [place] [address] Care Team Providers Care Histology Supervisor Name Role Phone Sonya(inactive) Kamlesh CARRILLO Primary Care Provider U Vernon Bailey Unavailable [phone] Allergies Allergen (clinical drug ingredient) Drug/Non Drug Allergy documented on EMR Reaction Allergy Type Onset Date Status morphine Morphine Sulfate Unknown Drug Allergy Active Reason For Referral No Information Medications Medication SIG (Take, Route, Fr equency, Duration) Notes Start Date End Date Status Aspir-81 81 MG 1 tablet Orally Once a day Active Zoloft 50 MG 1 tablet Orally Once a day Active Flax Seed Oil 1000 MG 1 Orally qd Active Vitamin D 1000 UNIT 1 tablet Orally Once a day Active Valsartan 160 MG 1 tablet Orally Once a day Active Immunizations Vaccine Route Administration Date Status Comme nts Flu vaccine no Preserv 3 and > Unknown 06/27/2016 Admin istered Problems Problem Type SNOMED Code ICD Code Onset Dates Problem Status W/U Status Risk Notes Problem [id number] Encounter for screening for malignant neoplasm of colon (Z12.11) Active confirmed Problem 69160983 Hypertension (I10) Active confirmed Problem Encounter for screening for malignant neoplasm of rectum (Z12.12) Active confirmed Problem 97961650 Preprocedural examination (Z01.818) Active confirmed Problem [id number] Long-term use of aspirin therapy (Z79.82) Active confirmed Plan Of Treatment Future Test Test Name Order Date COLONOSCOPY 10/25/2016 Insurance Providers Payer Name Payer Address Payer Phone Subscriber Number Group Number Insured Name Patient Relationship to Insured Coverage Start Date Coverage End Date MEDICARE OF [place] [address] [place] [id number] DIANA CORREIA Self - patient is the insured [facility] [address] [place], [place] [id number] [phone] [id number] DIANA CORREIA Self - patient is the insured Medical (General) History Medical History History ICD Code Screening colonoscopy 007--neg. except for diverticulosis and internal hemorrhoids Hypertension Denies ID,DM,CVA,Lung disease,renal dise ase Surgical History Surgery Date(Month/Year) knee surgery Lap band---lost 60 # 2009 Right knee replacement 12/2014
[2025-03-16 15:41] VITALS: BP 125/80
== END 2025-03-16 13:48 | disposition home or self-care (01) ==
LOC: HO.HMCC 13:04
PROVIDERS: PCP Internal Medicine; Visit Provider Internal Medicine
DX: I10 Essential (primary) hypertension (principal); E66.9 Obesity, unspecified; Z68.35 Body mass index [BMI] 35.0-35.9, adult; E78.2 Mixed hyperlipidemia

== ENCOUNTER → 2025-03-16 13:03 | Outpatient (BNVA) | payer MEDICARE, BC, SELFPAY | PROVIDERS: PCP Internal Medicine; Visit Provider Internal Medicine | DX: I10 Essential (primary) hypertension (principal); E78.2 Mixed hyperlipidemia; E66.9 Obesity, unspecified; Z68.35 Body mass index [BMI] 35.0-35.9, adult; Z71.3 Dietary counseling and surveillance | CPT/HCPCS: 96127; 99212 ==

== ENCOUNTER 2025-05-21 10:55 | Outpatient (AMB) | payer MEDICARE, BC, SELFPAY ==
[2025-05-21 11:26] VITALS: BP 148/66; PULSE 71; RESP 16; TEMP 36.6; O2SAT 98; BMI 35.2
--- NOTE | 2025-05-21 11:26 | A.OFFPC_ITS ---
Vital Signs 05/21/25 11:26 05/21/25 11:41 Height 5 ft 10 in Weight 245 lb BMI 35.2 BP 148/66 H 130/60 Blood Pressure Location Lt brachial Lt brachial Position Sitting Sitting Respiration 16 Pulse 71 Pulse Source Pulse Oximeter Temp 97.9 F Temp Source Oral Pulse Oximetry (%) 98 Oxygen Delivery Method Room Air Intake Visit Reasons: follow up weight, lipids, htn Intake Note: Pt is here today for his HTN and weight in [employer] Required: No Allergies lisinopril Allergy (Unknown, Verified 05/21/25 11:36) cough morphine Allergy (Unknown, Verified 05/21/25 11:36) hives Medication List - Last Reconciled 05/21/25 by Michelle Mejía MD aspirin (Adult Low Dose Aspirin) 81 mg PO DAILY cholecalciferol (vitamin D3) 50 mcg PO DAILY flaxseed oil 1,000 mg PO DAILY lorazepam 0.5 mg PO DAILY PRN losartan-hydrochlorothiazide 100-12.5 mg 1 tab PO DAILY semaglutide (weight loss) (Wegovy) 1 mg subcut QWEEK sertraline 50 mg PO DAILY Tobacco use date assessed: 05/21/25 Fall risk assessment: No Falls in past year Last assessed Fall Risk: 05/21/25 Dental Screening Dental Screen Date: 05/21/25 Did you have a dental visit in the last 12 months?: Yes Did you have a dental problem in the last 6 months where you did not have access to dental care?: No Was dental information given to patient?: Patient has dentist HPI follow up weight, lipids, htn HPI Details 75 year old male with history of obesity , hypertension, mixed dyslipidemia, and depression/ anxiety here today for a follow up . Blood pressure stable and controlled on present treatment. He is currently getting his semaglutide through an online weight clinic. States that he is now on 1 mg subcutaneously given once a week. He has lost approximately 32 lb lb since he started taking the medication almost 6 months ago . Tolerating medication well with no adverse effects reported.. With his weight loss he states that he is feeling better, last joint pains and improved mood [facility] Medical History Family history of clotting disorder Obesity (BMI 30-39.9) Depression with anxiety White coat syndrome with hypertension Mixed dyslipidemia Impaired fasting glucose History of retinal tear Hollenhorst plaque, both eyes History of eczema Osteoarthritis of right knee Obesity Essential hypertension Surgical History History of bariatric surgery History of total right knee replacement Family History Mother Congestive heart failure Social History Housing: House Alcohol intake: current Patient Tobacco Use Status: Never used Tobacco e-Cigarette/Vaping Use: Never Used Current occupational status: retired Cognitive needs: No Hearing needs: No Vision needs: No Questionnaire PHQ-9 Over the last 2 weeks, how often have you been bothered by any of the following problems? 1. Little interest or pleasure in doing things: not at all 2. Feeling down, depressed, or hopeless: not at all 3. Trouble falling or staying asleep, or sleeping too much: several days 4. Feeling tired or having little energy: not at all 5. Poor appetite or overeating: not at all 6. Feeling bad about yourself - or that you are a failure or have let yourself or your family down: not at all 7. Trouble concentrating on things, such as reading the newspaper or watching television: not at all 8. Moving or speaking so slowly that other people could have noticed. Or the opposite - being so fidgety or restless that you have been moving around a lot more than usual: not at all 9. Thoughts that you would be better off or of hurting yourself in some way: not at all Total score: 1 Depression Screening Interpretation: Negative Depression Screening Done: Yes Source: Developed by Drs. Vernon Harry, Yandy Pate, Ming Borjas and colleagues, with an educational angie from [employer]. Thrive Questionnaire Date Thrive assessed: 12/23/24 I am a: Patient What is your living situation today?: I have a steady place to live Within the past 12 months, did the food you bought not last and you didn't have the money to get more?: Never true Within the past 12 months, did you worry whether your food would run out before you got money to buy more?: Never true Do you have trouble paying for medicines?: No Do you have trouble getting transportation to medical appointments?: No Do you have trouble paying your heating and electricity bill?: No Do you have trouble taking care of your child, family member or friend?: No Do you have trouble with day-to-day activities such as bathing, preparing meals, shopping, managing finances, etc.?: No Are you currently unemployed and looking for a job?: No Are you interested in more education?: No Please select the resources that you would like help with: Paying for medicine Currently or been in a relationship where the following occur: No concerns reported THRIVE Score: 0 AUDIT C Alcohol Use Questionnaire (AUDIT-C) 1. How often do you have a drink containing alcohol?: Monthly or less 2. How many drinks containing alcohol do you have on a typical day when you are drinking?: 1 or 2 3. How often do you have six or more drinks on one occasion?: Never Total Score: 1 MCKAYLA-7 AMB Questionnaire MCKAYLA-7 Date MCKAYLA - 7 assessed: 03/16/25 Feeling nervous, anxious, or on edge: 0 = Not at all Not being able to stop or control worryin = Not at all Worrying too much about different things: 0 = Not at all Trouble relaxin = Not at all Being so restless that it is hard to sit still: 0 = Not at all Becoming easily annoyed or irritable: 0 = Not at all Feeling afraid as if something awful might happen: 0 = Not at all Total MCKAYLA-7 score (0-4 normal; 5-9 mild; 10-14 moderate; 15-21 severe): 0 Source: Developed by Drs. Vernon Harry, Yandy Pate, Ming Borjas and colleagues, with an educational angie from [employer]. Review of Systems Const Denies body aches, Denies headache(s), Denies malaise, Denies poor appetite and Denies weakness Eyes Reports no additional complaints ENT Denies dizziness, Denies headache(s) and Denies nasal congestion Card Denies chest pain, Denies irregular heart rhythm, Denies lightheadedness and Denies dyspnea Resp Denies cough and Denies dyspnea GI Denies abdominal pain, Denies melena, Denies hematochezia, Denies change in bowel habits and Denies heartburn Denies hematuria, Denies difficulty urinating and Denies dysuria Musc Denies back pain, Denies myalgias, Denies arthralgias, Denies joint swelling and Denies muscle cramps Skin/Breast Denies lesions and Denies rash Neuro Denies dizziness, Denies headache(s), Denies convulsions, Denies Sensory deficit (Neuro), Denies paresthesias and Denies weakness Psych Reports no additional complaints Endo Denies polyphagia Ricardo/Lymph Reports no additional complaints Aller/Immun Reports no additional complaints Physical exam (Primary Care) Vital Signs: Last Vital Signs Temp 97.9 F 05/21/25 11:26 Pulse 71 05/21/25 11:26 Resp 16 05/21/25 11:26 BP 130/60 05/21/25 11:41 Pulse Ox 98 05/21/25 11:26 Oxygen Delivery Method Room Air 05/21/25 11:26 BMI result Body Mass Index 35.2 Tobacco/Smoking Status: Tobacco use Status Tobacco use date assessed 05/21/25 05/21/25 11:31 Patient Tobacco Use Status Never used Tobacco 05/21/25 11:31 e-Cigarette/Vaping Use Never Used 05/21/25 11:31 PHQ-9: PHQ-9 Score PHQ-9: Total score 1 05/21/25 12:01 Depression Screening Interpretation: Negative Thrive Assessment: Date of Thrive Assessment Date Thrive assessed 12/23/24 05/21/25 11:31 Currently or been in a relationship where the following occur: No concerns reported Const Other: Alert oriented x3, obese, no acute distress noted, ambulatory normal gait HENMT Face and sinus: Yes face symmetric Mouth: Normal oral and palatal mucosa present and moist mucous membranes Eyes General: appearance normal, both eyes and all related structures Neck Neck: Yes full ROM, Yes no lymphadenopathy and Yes supple Thyroid: Thyroid normal Resp Auscultation: clear to auscultation bilaterally Cardio Other: S1-S2 present regular rate and rhythm GI Inspection: Yes normal to inspection and Yes obesity Palpation (GI): Soft to palpation, nontender, no guarding and no masses Auscultation: normal bowel sounds General: Yes no CVA tenderness Male General Exam: Yes normal external exam Back/Spine/Pelvis Back: no CVA tenderness Neuro General: gait normal, tone normal, moves all extremities, Normal light touch and pain sensation, no focal motor deficits and CN's II-XI intact bilaterally Sensory Exam: No Sensory deficit (Neuro) Extrem General: Yes full ROM, Yes no joint enlargement, Yes no clubbing, cyanosis or edema and Yes normal gait Psych Appearance: grossly normal and well kempt Mental Status: mental status grossly normal Speech and movement: Normal speech and movement present Affect: normal affect Coding Level of Care Code Est Pt Level 4 (45054) Diagnoses Essential hypertension I10 Mixed dyslipidemia E78.2 Impaired fasting glucose R73.01 Class 2 severe obesity due to excess calories with serious comorbidity and body mass index (BMI) of 39.0 to 39.9 in adult E66.01; Z68.39 Obesity type: due to excess calories Obesity classification: adult class 2 (BMI 35 - 39.9) Serious obesity comorbidity presence: with serious comorbidity Body mass index: BMI 39.0-39.9 Assessment & Plan Assessment & Plan (1) Essential hypertension: Code(s): I10 - Essential (primary) hypertension Category: Medical Plan: Blood pressure at goal of less than 130/80. Continue with current medication. Reinforced importance of following a low sodium diet, getting regular exercise, and lowering stress levels. (2) Mixed dyslipidemia: Code(s): E78.2 - Mixed hyperlipidemia Category: Medical Plan: Continue taking flaxseed oil, reinforced importance of adhering to a low- cholesterol diet and getting regular exercise (3) Impaired fasting glucose: Code(s): R73.01 - Impaired fasting glucose Category: Medical Plan: Your previous fasting blood sugars were elevated above 100 mg/dL. Impaired glucose metabolism increases the risk for developing diabetes mellitus type 2, as well as heart attack and stroke later on. Lifestyle changes that promotes weight loss, healthy eating habits, and regular exercise are important, and can prevent the progression to diabetes (4) Obesity: Code(s): E66.9 - Obesity, unspecified Category: Medical Qualifiers: Obesity type: due to excess calories Obesity classification: adult class 2 (BMI 35 - 39.9) Serious obesity comorbidity presence: with serious comorbidity Body mass index: BMI 39.0-39.9 Qualified Code(s): E66.01 - Morbid (severe) obesity due to excess calories; Z68.39 - Body mass index [BMI] 39.0- 39.9, adult Plan: Currently on semaglutide, sees an online weight clinic, with good results. No adverse effects noted from taking medication. Continue adherence to healthy eating habits and getting regular exercise at least 30 minutes cardio exercises daily
[2025-05-21 11:41] VITALS: BP 130/60
--- OUTSIDE RECORDS SUMMARY | 2025-05-21 12:51 | XMS_ITS | Patient Health Record ---
Author Organization [facility] Address [address] [place] [address] Care Team Providers Care Assistant Manager Name Role Phone Sonya(inactive) Kamlesh CARRILLO Primary Care Provider U Vernon Bailey Unavailable [phone] Allergies Allergen (clinical drug ingredient) Drug/Non Drug Allergy documented on EMR Reaction Allergy Type Onset Date Status Morphine Sulfate Unknown Drug Allergy Active Reason [...] Problem Status W/U Status Risk Notes Problem 472635611 Encounter for screening for malignant neoplasm of colon (Z12.11) Active confirmed Problem 10429196 Hypertension (I10) Active confirmed Problem Screening for malignant neoplasm of rectum (364187317) Encounter for screening for malignant neoplasm of rectum (Z12.12) Active confirmed Problem 70456530 Preprocedural examination (Z01.818) Active confirmed Problem 797264157 Long-term use of aspirin therapy (Z79.82) Active confirmed Plan Of Treatment Future Test Test Name Order Date COLONOSCOPY 10/25/2016 Insurance Providers Payer Name Payer Address Payer Phone Subscriber Number Group Number Insured Name Patient Relationship to Insured Coverage Start Date Coverage End Date MEDICARE OF [place] [address] [place] [id number] [phone] [id number] DIANA CORREIA Self - patient is the insured [facility] [address] [place], [place] [id number] [phone] [id number] DIANA CORREIA Self - patient is the insured Medical (General) History Medical History History ICD Code Screening colonoscopy 007--neg. except for diverticulosis and internal hemorrhoids Hypertension Denies AK,DM,CVA,Lung disease,renal dise ase Surgical History Surgery Date(Month/Year) knee surgery Lap band---lost 60 # 2009 Right knee replacement 12/2014
== END 2025-05-21 12:32 | disposition home or self-care (01) ==
LOC: HO.HMCC 10:56
PROVIDERS: PCP Internal Medicine; Visit Provider Internal Medicine
DX: I10 Essential (primary) hypertension (principal); E78.2 Mixed hyperlipidemia; R73.01 Impaired fasting glucose; E66.01 Morbid (severe) obesity due to excess calories; Z68.39 Body mass index [BMI] 39.0-39.9, adult

== ENCOUNTER → 2025-05-21 10:55 | Outpatient (BNVA) | payer MEDICARE, BC, SELFPAY | PROVIDERS: PCP Internal Medicine; Visit Provider Internal Medicine | DX: I10 Essential (primary) hypertension (principal); E78.2 Mixed hyperlipidemia; F32.A Depression, unspecified; F41.9 Anxiety disorder, unspecified; R73.01 Impaired fasting glucose; E66.01 Morbid (severe) obesity due to excess calories; Z68.39 Body mass index [BMI] 39.0-39.9, adult | CPT/HCPCS: 96127; 99212 ==

== ENCOUNTER 2025-08-12 07:40 | Outpatient (REF) | payer MEDICARE, BC, SELFPAY ==
--- OUTSIDE RECORDS SUMMARY | 2025-08-12 07:43 | XMS_ITS | Patient Health Record ---
Author Organization [facility] Address [address] [place] [address] Care Team Providers Care Fire Support Man Name Role Phone Sonya(inactive) Kamlesh CARRILLO Primary Care Provider U Vernon Bailey Unavailable [phone] Allergies Allergen (clinical drug ingredient) Drug/Non Drug Allergy documented on EMR Reaction Allergy Type Onset Date Status morphine Morphine Sulfate Unknown Drug Allergy Active Reason For Referral No Information Medications Medication SIG (Take, Route, Frequency, Duration) Notes Start Date End Date Status Aspir-81 81 MG Tablet Delayed Release 1 tablet Orally Once a day Active Zoloft 50 MG Tablet 1 tablet Orally Once a day Active Flax Seed Oil 1000 MG Capsule 1 Orally qd Active Vitamin D 1000 UNIT Tablet 1 tablet Orally Once a day Active Valsartan 160 MG Tablet 1 tablet Orally Once a day Active Immunizations Vaccine Route Administration Date Status Comme nts Flu vaccine no Preserv 3 and > Unknown 06/27/2016 Admin istered Social History Social History Additional Details Category Social Info Options Details Miscellaneous: Marital status: Occupation: retired Section Notes: Nonsmoker; occ alcohol Problems Problem Type SNOMED Code ICD Code Onset Dates Problem Status W/U Status Risk Notes Problem Screening for malignant neoplasm of colon (075694878) Encounter for screening for malignant neoplasm of colon (Z12.11) Active confirmed Problem Hypertension (09897421) Hypertension (I10) Active confirmed Problem Screening for malignant neoplasm of rectum (738980261) Encounter for screening for malignant neoplasm of rectum (Z12.12) Active confirmed Problem Preprocedural examination (920292491867414) Preprocedural examination (Z01.818) Active confirmed Problem Long-term current use of antiplatelet drug (782834836515330) Long-term use of aspirin therapy (Z79.82) Active confirmed Plan Of Treatment Future Test Test Name Order Date COLONOSCOPY 10/25/2016 Insurance Providers Payer Name Payer Address Payer Phone Subscriber Number Group Number Insured Name Patient Relationship to Insured Coverage Start Date Coverage End Date MEDICARE OF [place] [address] [place] [id number] [phone] [id number] DIANA CORREIA Self - patient is the insured [facility] [address] [place], [place] [id number] DIANA CORREIA Self - patient is the insured Medical (General) History Medical History History ICD Code Screening colonoscopy 09-04- 007--neg. except for diverticulosis and internal hemorrhoids Hypertension Denies ND,DM,CVA,Lung disease,renal dise ase Surgical History Surgery Date(Month/Year) knee surgery Lap band---lost 60 # 2009 Right knee replacement 12/2014
[2025-08-12 10:47] LABS: Alanine Aminotransferase 24 U/L (0-40); Anion Gap 11 (12-20); Aspartate Amino Transferase 42 U/L (5-37); Blood Urea Nitrogen 21 mg/dL (9-16); Calcium 9.3 mg/dL (8.4-10.2); Carbon Dioxide 29 mmol/L (22-29); Chloride 104 mmol/L (96-108); Cholesterol 191 mg/dL (<200); Estimated Glomerular Filt Rate 56; HDL Cholesterol 46 mg/dL (>40); Potassium 4.4 mmol/L (3.3-5.1); Sodium 140 mmol/L (135-145); Triglycerides 106 mg/dL (<150)
[2025-08-12 11:08] LABS: Folate 5.0 ng/mL (> or = 4.0); Vitamin B12 1611 pg/mL (200-900)
== END 2025-08-12 07:41 | disposition home or self-care (01) ==
LOC: HO.HMGCLDS 07:40
PROVIDERS: PCP Internal Medicine; Visit Provider Internal Medicine
DX: I10 Essential (primary) hypertension (principal); E78.2 Mixed hyperlipidemia; R73.01 Impaired fasting glucose; R53.83 Other fatigue; Z83.2 Family history of diseases of the blood and blood-forming organs and certain disorders involving the immune mechanism
CPT/HCPCS: 36415; 80048; 80061; 82306; 82607; 82746; 84443; 84450; 84460; 85300